=== PATIENT | male | born 1960 | race Caucasian/White ===

== ENCOUNTER → 2017-05-20 | Outpatient (CLI) | payer OTHER ==
[2017-05-20 13:25] LABS: HCT 43.3 % (39.0-53.0); HGB 15.2 gm/dL (13.0-17.5); MCH 30.3 pg (25.0-35.0); MCV 86.6 fL (80.0-100.0); Mean Platelet Volume 6.8; Platelet Count 400 k/uL (150-450); RDW 12.6 % (11.5-15.5); WBC 8.8 k/uL (3.8-10.6)
== END | disposition home or self-care (01) ==
LOC: LABPAT 12:35
PROVIDERS: ATTEND Surgery
DX: Z01.812 Encounter for preprocedural laboratory examination (principal); K21.0 Gastro-esophageal reflux disease with esophagitis; D64.9 Anemia, unspecified; F17.200 Nicotine dependence, unspecified, uncomplicated
CPT/HCPCS: 36415; 85027

== ENCOUNTER → 2017-05-26 | Day surgery (SDC) | payer OTHER ==
[~2017-05-26] MED LIST: GLYCOPYRROLATE 0.2 MG/ML 2 ML VIAL ONE; LIDOCAINE 1% 20 ML VIAL (10MG/ML) FOR IV START INTRADERMA ONE; LIDOCAINE 1% INJ 10MG/ML (20 ML MDV) ONE; PROPOFOL 10 MG/ML 20 ML VIAL IV ONE
[2017-05-26] MEDS: LACTATED RINGERS 1,000 ML IV SCH ×2 (09:39→11:19)
[2017-05-26 09:47] VITALS: RESP 16; TEMP 97.5
--- NOTE | 2017-05-26 11:31 | P.GSHP ---
History of Present Illness H&P Date: 05/26/17 Chief Complaint: GERD This is a 56-year-old male referred from Dr. Brenner. Patient resents today for EGD. He's had issues with GERD. Past Medical History Past Medical History: COPD, GERD/Reflux, Pneumonia Additional Past Medical History / Comment(s): Pt is s/p cervical C5-C7 vertebrae replacement surgery performed at [facility] on 06/06/14. History of Any Multi-Drug Resistant Organisms: None Reported Past Surgical History: Orthopedic Surgery, Tonsillectomy Additional Past Surgical History / Comment(s): c5-c7 vertebrae replacement surg on 06/06/14 at [facility]- wearing cervical hard collar-healing incision to rt side of neck. Rt knee arthrscopy, EGD W/ BX(BX WAS NEG) Past Anesthesia/Blood Transfusion Reactions: No Reported Reaction Past Psychological History: No Psychological Hx Reported Additional Psychological History / Comment(s): Pt lives with his fiancee. He is independent with ADls. He can drive. Smoking Status: Former smoker Past Alcohol Use History: Rare Additional Past Alcohol Use History / Comment(s): Pt started smoking when he was 13 yrs old and quit in 1999. Past Drug Use History: None Reported - Past Family History Father Family Medical History: CVA/TIA Additional Family Medical History / Comment(s): Father is currently hospitalized here at [facility] with mini strokes. Mother Family Medical History: No Reported History Additional Family Medical History / Comment(s): Mother is healthy. Medications and Allergies Home Medications Medication Instructions Recorded Confirmed Type Albuterol Inhaler [Ventolin Hfa 2 puff INHALATION RT-Q6H PRN 06/24/14 05/26/17 History Inhaler] Multivitamin/Iron/Folic Acid 1 each PO DAILY 02/24/15 05/26/17 History [Centrum Complete Multivit Tab] Omeprazole 20 mg PO BID 05/20/17 05/26/17 History Allergies Allergy/AdvReac Type Severity Reaction Status Date / Time No Known Allergies Allergy Verified 05/20/17 08:32 Surgical - Exam Vital Signs Temp Pulse Resp BP Pulse Ox 97.5 F L 75 16 116/71 96 05/26/17 09:43 05/26/17 09:43 05/26/17 09:43 05/26/17 09:43 05/26/17 09:43 - General well developed, no distress - Eyes PERRL - ENT normal pinna - Neck no masses - Respiratory normal expansion - Cardiovascular Rhythm: regular - Abdomen Abdomen: soft, non tender Assessment and Plan Assessment: GERD. We'll perform EGD.
--- NOTE | 2017-05-26 11:36 | P.OP ---
Date of Procedure: 05/26/17 Preoperative Diagnosis: GERD Postoperative Diagnosis: Antral gastritis Hiatal hernia Esophagitis Procedure(s) Performed: EGD Anesthesia: MAC Surgeon: Christopehr Laura Pathology: other (Antrum, esophagus) Condition: stable Disposition: PACU Description of Procedure: The patient's placed on the endoscopy table in the lateral position. He received IV sedation. The gastroscope was placed oropharynx passed in the esophagus and stomach. The scope was then placed through the pylorus. The first and second portion of the duodenum appeared normal. The scope was then brought back the antrum this was mildly inflamed. A biopsies performed. The scope was then retroflexed and there was a moderate size hiatal hernia. The GE junction was at 38 cm. The distal esophagus appeared inflamed and a biopsies performed. The proximal esophagus appeared normal. The scope was withdrawn for patient.
[2017-05-26 11:51] VITALS: BP 114/70
[2017-05-26 11:52] VITALS: PULSE 80
== END ==
LOC: ORWHC2ENDO 09:29
PROVIDERS: ATTEND Surgery
DX: K21.0 Gastro-esophageal reflux disease with esophagitis (principal); K29.50 Unspecified chronic gastritis without bleeding; K44.9 Diaphragmatic hernia without obstruction or gangrene; J44.9 Chronic obstructive pulmonary disease, unspecified; Z87.891 Personal history of nicotine dependence; Z79.899 Other long term (current) drug therapy
CPT/HCPCS: 88305; 43239; J2001; J2704

== ENCOUNTER 2017-05-27 08:52 | Day surgery (SDC) | payer OTHER ==
[~2017-05-27 08:52] MED LIST changes: +DEXAMETHASONE SOD PHOSPHATE 10 MG/ML 1 ML VIAL IV ONE; -GLYCOPYRROLATE 0.2 MG/ML 2 ML VIAL ONE; +HEPARIN SODIUM,PORCINE 5,000 UNIT/ML 1 ML VIAL SQ ONE; -LIDOCAINE 1% 20 ML VIAL (10MG/ML) FOR IV START INTRADERMA ONE; +LIDOCAINE 1% 20 ML VIAL (10MG/ML) FOR IV START INTRADERMA PRN; -LIDOCAINE 1% INJ 10MG/ML (20 ML MDV) ONE; +MIDAZOLAM 2 MG/2 ML VIAL IV PRN; +ONDANSETRON 4 MG/2 ML VIAL IVP ONE; -PROPOFOL 10 MG/ML 20 ML VIAL IV ONE; +SCOPOLAMINE 1.5MG/72HR PATCH TRANSDERM ONE; +ceFAZolin IN SWFI 2 GM/20 ML SYRINGE IVP ONE
[2017-05-27] MEDS ORDERED: LACTATED RINGERS 1,000 ML IV ONE ×2 (09:29→11:52)
--- NOTE | 2017-05-27 10:59 | P.GSHP ---
History of Present Illness H&P Date: 05/27/17 Chief Complaint: GERD This a 56-year-old male referred from Dr. Brenner.The patient has had long- standing problems with reflux esophagitis. The patient underwent recent EGD is found have evidence of esophagitis. Patient has been well informed on the procedure of laparoscopic Jim fundoplication. The patient is aware the risk of the conversion to the open procedure, risk of injury to the stomach, liver and spleen. The patient is also a risk of recurrent GERD and dysphagia symptoms. The patient understands there is a postoperative diet of full liquids for 2 weeks after surgery. Past Medical History Past Medical History: COPD, GERD/Reflux, Pneumonia Additional Past Medical History / Comment(s): Pt is s/p cervical C5-C7 vertebrae replacement surgery performed at [facility] on 06/06/14. History of Any Multi-Drug Resistant Organisms: None Reported Past Surgical History: Orthopedic Surgery, Tonsillectomy Additional Past Surgical History / Comment(s): c5-c7 vertebrae replacement surg on 06/06/14 at [facility]- wearing cervical hard collar-healing incision to rt side of neck. Rt knee arthrscopy, EGD W/ BX(BX WAS NEG) Past Anesthesia/Blood Transfusion Reactions: No Reported Reaction Past Psychological History: No Psychological Hx Reported Additional Psychological History / Comment(s): Pt lives with his fiancee. He is independent with ADls. He can drive. Smoking Status: Former smoker Past Alcohol Use History: Rare Additional Past Alcohol Use History / Comment(s): Pt started smoking when he was 13 yrs old and quit in 1999. Past Drug Use History: None Reported - Past Family History Father Family Medical History: CVA/TIA Additional Family Medical History / Comment(s): Father is currently hospitalized here at [facility] with mini strokes. Mother Family Medical History: No Reported History Additional Family Medical History / Comment(s): Mother is healthy. Medications and Allergies Home Medications Medication Instructions Recorded Confirmed Type Albuterol Inhaler [Ventolin Hfa 2 puff INHALATION RT-Q6H PRN 06/24/14 05/26/17 History Inhaler] Multivitamin/Iron/Folic Acid 1 each PO DAILY 02/24/15 05/26/17 History [Centrum Complete Multivit Tab] Omeprazole 20 mg PO BID 05/20/17 05/26/17 History Allergies Allergy/AdvReac Type Severity Reaction Status Date / Time No Known Allergies Allergy Verified 05/20/17 08:32 Surgical - Exam Vital Signs Temp Pulse Resp BP Pulse Ox 97.8 F 66 18 133/71 97 05/27/17 09:28 05/27/17 09:28 05/27/17 09:28 05/27/17 09:28 05/27/17 09:28 - General well developed - Eyes PERRL - ENT normal pinna - Neck no masses - Respiratory normal expansion - Cardiovascular Rhythm: regular - Abdomen Abdomen: soft, non tender Assessment and Plan Assessment: GERD. We'll perform laparoscopic Jim fundal plication.
[2017-05-27] MEDS ORDERED: NEOSTIGMINE 1 MG/ML 10 ML VIAL ONE (11:15)
[2017-05-27] MEDS ORDERED: MIDAZOLAM 2 MG/2 ML VIAL ONE (11:15)
[2017-05-27] MEDS ORDERED: LIDOCAINE 1% INJ 10MG/ML (20 ML MDV) ONE (11:15)
[2017-05-27] MEDS ORDERED: GLYCOPYRROLATE 0.2 MG/ML 2 ML VIAL ONE (11:15)
[2017-05-27] MEDS ORDERED: ROCURONIUM BROMIDE 10 MG/ML 10 ML VIAL IV ONE (11:15)
[2017-05-27] MEDS ORDERED: fentaNYL (PF) 50 MCG/ML 2 ML AMP ONE (11:15)
[2017-05-27] MEDS ORDERED: SUCCINYLCHOLINE CHLORIDE 100 MG/5 ML SYR IV ONE (11:15)
[2017-05-27] MEDS ORDERED: PROPOFOL 10 MG/ML 20 ML VIAL IV ONE (11:15)
[2017-05-27] MEDS ORDERED: BUPIVACAINE (PF) 0.5% 30 ML VIAL SQ ONE (11:51)
[2017-05-27 12:54] VITALS: RESP 16
[2017-05-27] MEDS: MORPHINE SULFATE 2 MG/ML SYRINGE IV PRN ×2 (13:00→13:05)
[2017-05-27] MEDS ORDERED: ONDANSETRON 4 MG/2 ML VIAL IVP PRN (13:07)
--- NOTE | 2017-05-27 13:07 | P.OP ---
Date of Procedure: 05/27/17 Preoperative Diagnosis: GERD Postoperative Diagnosis: GERD Procedure(s) Performed: Laparoscopic Jim fundoplication with mesh repair of hiatal hernia Anesthesia: DARIAN Surgeon: Christopher Laura Estimated Blood Loss (ml): 5 Pathology: none sent Condition: stable Description of Procedure: The patient was placed on the operating table in the supine position. She received general anesthesia. She was then placed in dorsal lithotomy position. Her abdomen was prepped and draped in the usual sterile fashion. The skin incision sites were anesthetized with 1% local Xylocaine. The skin was incised in the left periumbilical area with an 11 scalpel. Using a 5 mm blade was trocar under direct visitation the peritoneal cavity was entered. And then insufflated. After adequate insufflation the laparoscope was placed back into the peritoneal cavity. Next a 5 mm trocar was placed in the right epigastric and then the right lateral position. Another 5 mm trochars placed in the left lateral position. Another 5 mm trocar placed in the left epigastric position. And the original left periumbilical trocar was exchanged for a 10 mm trocar. The left lateral lobe liver was retracted. The patient had a large hiatal hernia. Using the Harmonic scissors the crural defect was dissected in the Harmonic scissors were used to dissect the hiatal hernia sac. The fundus of the stomach was completely mobilized by using the Harmonic scissors to divide short gastric vessels. The stomach was reduced into the peritoneal cavity. The crura was dissected with the Harmonic scissors. And then the crural repair was performed using 2-0 Ethibond suture. The Debord bio A mesh was then placed over top of the repair and secured with 2-0 Ethibond suture. Next a 58-Syrian bougie dilator was placed the patient's oral pharynx and into the esophagus into the stomach by the FAGOTING MACHINE OPERATOR. The fundoplication was then performed using 2-0 Ethibond suture. A 360 fundoplication was performed. At this point the dilator was withdrawn. The stomach and esophagus were inspected there is known to any injury to the stomach or esophagus. The abdomen was irrigated there is no bleeding seen. The trochars are withdrawn. Skin was closed interrupted 3-0 Monocryl suture. Dermabond was applied. Patient tolerated procedure well and was sent to recovery in stable condition.
[2017-05-27] MEDS: MEPERIDINE 50 MG/ML SYRINGE IVP ONE ×4 (13:15→13:27)
[2017-05-27] MEDS ORDERED: hydrALAZINE HCL 20 MG/ML 1 ML VIAL IVP ONE (13:22)
[2017-05-27] MEDS ORDERED: MEPERIDINE 50 MG/ML SYRINGE IVP PRN (13:39)
[2017-05-27] MEDS: LACTATED RINGERS 1,000 ML IV SCH (14:11)
--- NOTE | 2017-05-27 14:35 | FL ---
EXAMINATION TYPE: FL esophagus cervic/pharynx DATE OF EXAM: 05/27/2017 HISTORY: Status post Jim fundoplication COMPARISON: NONE TECHNIQUE: A single contrast esophagram is performed utilizing barium. Fluoro time 1 min 16 seconds . 8 images saved. FINDINGS: The esophagus shows blunting motility and delayed into the stomach, moderate in degree with intraesop hageal reflux. No evidence of hiatal hernia or stricture noted. No evidence of contrast extravasatio n to suggest leak. No significant gastroesophageal reflux was seen during real time performance of th is study. IMPRESSION: No evidence of postprocedural leak. Moderate delay in emptying into the stomach at the g astroesophageal junction, likely representing postoperative edema. There is moderate resultant intrae sophageal reflux.
[2017-05-27 14:39] VITALS: BMI 24.7
[2017-05-27] MEDS: HYDROcodone/APAP 7.5-325MG 1 EACH TAB PO PRN ×3 (15:46→23:49)
[2017-05-27] MEDS: D5-0.45% NACL WITH KCL 20MEQ/L 1,000 ML IV SCH ×2 (17:32→22:42)
[2017-05-27] MEDS ORDERED: ALBUTEROL NEBULIZED 2.5 MG/3 ML INHALATION PRN (22:40)
[2017-05-28 02:21] VITALS: BP 124/56; TEMP 97.7
[2017-05-28] MEDS: HYDROcodone/APAP 7.5-325MG 1 EACH TAB PO PRN ×2 (04:52→08:46)
[2017-05-28] MEDS: D5-0.45% NACL WITH KCL 20MEQ/L 1,000 ML IV SCH (05:49)
[2017-05-28] MEDS: LACTATED RINGERS 1,000 ML IV SCH (05:50)
--- NOTE | 2017-05-28 08:41 | CONS ---
CONSULTATION REASON FOR CONSULTATION: Advice regarding COPD and other medical issues requested by Dr. Laura. HISTORY OF PRESENT ILLNESS: This 56-year-old gentleman with a past medical history of COPD, GERD, history of C5-7 vertebral replacement surgery, being followed by Dr. Brenner in the outpatient setting underwent laparoscopic Jim fundoplication with mesh repair of hiatal hernia by Dr. Laura. The patient has tolerated surgery well and there is no history of chest pain. No palpitations, headache, loss of consciousness, seizures, nausea or diarrhea at this time. PAST MEDICAL: COPD, GERD, history of pneumonia. MEDICATIONS: Omeprazole 20 mg b.i.d., albuterol 2 puffs q.6 p.r.n., multivitamin 1 daily. ALLERGIES: None. FAMILY HISTORY: History of CVA, TIA in the family. SOCIAL HISTORY: Previous history of smoking. No history of current smoking or alcohol intake. REVIEW OF SYSTEMS: ENT: No diminished hearing or vision. CARDIOVASCULAR: No angina. RESPIRATORY: No cough or hemoptysis. GI: As mentioned earlier. : No dysuria NERVOUS SYSTEM: No numbness, weakness. ALLERGY/IMMUNOLOGY: No asthma or hay fever. MUSCULOSKELETAL: As mentioned earlier. HEMATOLOGY/ONCOLOGY: No history of anemia. ENDOCRINE: No history of diabetes or hypothyroidism. CONSTITUTIONAL: As mentioned earlier. DERMATOLOGY: Negative. RHEUMATOLOGY: Negative. PSYCHIATRY: As mentioned earlier. PHYSICAL EXAMINATION: Alert and oriented x3. Pulse is 112, blood pressure 130/70, respiration 18, temperature 97.2, pulse ox 98% on room air. HEENT: Conjunctivae normal. NECK: No jugular venous distention. CARDIOVASCULAR: S1, S2 RESPIRATORY: Breath sounds diminished in the bases. No rhonchi, no crackles. ABDOMEN: Soft, status post surgery. LEGS: No edema, no swelling. NERVOUS SYSTEM: Higher functions as mentioned earlier, moves all 4 limbs, no focal deficits. LYMPHATIC: No lymphadenopathy in the neck, axillae, groin.. SKIN: No ulcer, rash or bleeding. LABS: Not available. ASSESSMENT: 1. Status post laparoscopic Jim fundoplication with mesh repair of hiatal hernia. 2. History of gastroesophageal reflux disease. 3. History of chronic obstructive pulmonary disease. 4. History of pneumonia. 5. History of C5-7 vertebral replacement. 6. History of degenerative joint disease. RECOMMENDATIONS AND DISCUSSION: This 56-year-old gentleman who presented with multiple complex medical issues, at this time I recommend to continue current management and symptomatic treatment. Otherwise resume the home medications. Incentive spirometry. DVT prophylaxis. We will follow the patient closely with you and the patient may be asked to follow up with primary physician closely after discharge. Thank you, Dr. Laura, for letting us participate in the care of this patient. MMLAINEYL / TENISHAN: [id number] /
[2017-05-28 08:53] VITALS: PULSE 100
[2017-05-28] MEDS ORDERED: ENOXAPARIN 40 MG/0.4 ML SYRINGE SQ SCH (09:00)
--- NOTE | 2017-05-28 10:57 | P.DS ---
Providers Date of admission: 05/27/2017 Expected date of discharge: 05/28/17 Attending physician: Christopher Laura Consults: 05/27/17 13:07 Consult Physician Routine Consulting Provider: Mariza Davies Consult Reason/Comments: Medical management Do you want consulting provider notified?: Yes Primary care physician: Gilbert Kessler [facility] Course: This a 56-year-old male who underwent laparoscopic Jim location on 317. Patient did well postoperative. Please see hospital chart for details. He'll be discharged home today. Procedures: Laparoscopic Jim fundal plication Patient Condition at Discharge: Good Plan - Discharge Summary Discharge Rx Participant: Yes New Discharge Prescriptions: New Docusate [Colace] 100 mg PO BID #20 capsule HYDROcodone/APAP 7.5-325MG [Parlin 7.5] 1 each PO Q4H PRN #30 tab PRN Reason: Pain No Action Albuterol Inhaler [Ventolin Hfa Inhaler] 2 puff INHALATION RT-Q6H PRN PRN Reason: Shortness Of Breath Or Wheezing Multivitamin/Iron/Folic Acid [Centrum Complete Multivit Tab] 1 each PO DAILY Omeprazole 20 mg PO BID Discharge Medication List Albuterol Inhaler [Ventolin Hfa Inhaler] 2 puff INHALATION RT-Q6H PRN 06/24/14 [ History] Multivitamin/Iron/Folic Acid [Centrum Complete Multivit Tab] 1 each PO DAILY [History] Omeprazole 20 mg PO BID 05/20/17 [History] Docusate [Colace] 100 mg PO BID #20 capsule 05/28/17 [Rx] HYDROcodone/APAP 7.5-325MG [Parlin 7.5] 1 each PO Q4H PRN #30 tab 05/28/17 [Rx] Follow up Appointment(s)/Referral(s): Christopher Laura MD [STAFF PHYSICIAN] - 2 Weeks Discharge Disposition: HOME SELF-CARE
--- NOTE | 2017-05-28 12:11 | PN ---
PROGRESS NOTE DATE OF SERVICE: 05/28/2017 This 56-year-old gentleman who was admitted with laparoscopic Jim fundoplication with mesh repair is improving significantly. No chest pain or palpitations. No fever. PHYSICAL EXAMINATION: On exam, alert and oriented x3. Pulse 102, blood pressure 124/56, respirations 16, temperature 97.7, pulse ox 93% on room air. HEENT: Conjunctivae normal. NECK: No jugular venous distention. CARDIOVASCULAR: S1 and S2 muffled. RESPIRATORY: Diminished breath sounds at the bases. No rhonchi, no crackles. Abdomen is soft, status post surgery. LEGS: No edema, no swelling. NERVOUS SYSTEM: No focal deficits. . LABS: Labs are not available. ASSESSMENT: 1. Status post laparoscopic Jim fundoplication with mesh repair of hiatal hernia. 2. History of gastroesophageal reflux disease. 3. History of chronic obstructive pulmonary disease. 4. History of pneumonia. 5. C5-7 vertebral replacement history. 6. History of degenerative joint disease. RECOMMENDATIONS AND DISCUSSION: Recommend to continue current medications, continue symptomatic treatment, incentive spirometry, resume the home medications and rest of the medications per surgical recommendations. MMODL / IJN: [id number] /
== END 2017-05-28 11:50 | disposition home or self-care (01) ==
LOC: OR 08:52 → EDSTATUS 10:45 → 3SUR 12:43 → OR 05-28 11:50
PROVIDERS: ATTEND Surgery
DX: K21.0 Gastro-esophageal reflux disease with esophagitis (principal); K44.9 Diaphragmatic hernia without obstruction or gangrene; J44.9 Chronic obstructive pulmonary disease, unspecified; M19.90 Unspecified osteoarthritis, unspecified site; Z79.899 Other long term (current) drug therapy; Z87.891 Personal history of nicotine dependence; Z98.1 Arthrodesis status
CPT/HCPCS: 93005; 86900; 86901; 86850; 74210; 43280; C1781; J2250; J0360; J1644; J1100; J2710; Q9967; J2175; J2405; J2001; J1650; J3010; J2270; J0330; J2704; J0690

== ENCOUNTER 2017-07-02 22:21 | Inpatient (IN) | payer OTHER ==
[2017-07-02] MEDS ORDERED: SODIUM CHLORIDE 0.9% 1,000 ML IV STA (22:37)
[2017-07-02] MEDS ORDERED: RX INFO: IV CONTRAST WAS GIVEN 1 EACH MISC MISCELLANE PRN (22:37)
[2017-07-02] MEDS ORDERED: ONDANSETRON 4 MG/2 ML VIAL IVP STA (22:37)
[2017-07-02] MEDS ORDERED: MORPHINE SULFATE 4MG/4ML SYRG IV STA (22:37)
--- NOTE | 2017-07-02 22:43 | ED ---
Abdominal Pain HPI - General Chief Complaint: Abdominal Pain Stated Complaint: Constipation Time Seen by Provider: 07/02/17 22:29 Source: patient Mode of arrival: ambulatory Limitations: no limitations - History of Present Illness Initial Comments: Patient is a 56-year-old male presenting for abdominal pain. He was diagnosed last week with an SBO based on x-ray by his primary care physician. He states that the abdominal pain really started several weeks ago after a hiatal hernia surgery. The patient has been increasingly getting worse since then and is located in the left side of his abdomen and feels that her cramping/sharp sensation. There is no radiation of pain is been constant. The dry heaves become worse after eating but there are no modifying factors for the pain. He admits to some dysuria but no changes in frequency or testicular pain. He denies any fevers or chills states his last bowel movement was this morning. - Related Data Home Medications Medication Instructions Recorded Confirmed Albuterol Inhaler [Ventolin Hfa 2 puff INHALATION RT-Q6H PRN 06/24/14 05/26/17 Inhaler] Multivitamin/Iron/Folic Acid 1 each PO DAILY 02/24/15 05/26/17 [Centrum Complete Multivit Tab] Omeprazole 20 mg PO BID 05/20/17 05/26/17 Previous Rx's Medication Instructions Recorded Docusate [Colace] 100 mg PO BID #20 capsule 05/28/17 HYDROcodone/APAP 7.5-325MG [[place] 1 each PO Q4H PRN #30 tab 05/28/17 7.5] Allergies Allergy/AdvReac Type Severity Reaction Status Date / Time No Known Allergies Allergy Verified 05/20/17 08:32 Review of Systems ROS Statement: Those systems with pertinent positive or pertinent negative responses have been documented in the HPI. Constitutional: Negative for chills, fatigue and fever. HENT: Negative for congestion. Respiratory: Negative for chest tightness, shortness of breath and wheezing. Cardiovascular: Negative for chest pain and palpitations. Gastrointestinal: Positive for abdominal pain. Positive for nausea and negative for vomiting, abdominal distention, diarrhea, . Genitourinary: Positive for dysuria. Negative for testicular pain Musculoskeletal: Negative for back pain, neck pain and neck stiffness. Skin: Negative for color change. Neurological: Negative for dizziness, speech difficulty, weakness and light- headedness. Psychiatric/Behavioral: Negative for agitation and confusion. The patient is not nervous/anxious. ROS Other: All systems not noted in ROS Statement are negative. Past Medical History Past Medical History: COPD, GERD/Reflux, Pneumonia Additional Past Medical History / Comment(s): . History of Any Multi-Drug Resistant Organisms: None Reported Past Surgical History: Hernia Repair, Orthopedic Surgery, Tonsillectomy Additional Past Surgical History / Comment(s): c5-c7 vertebrae replacement surg on 06/06/14. Rt knee arthrscopy, EGD W/ BX(BX WAS NEG) Past Anesthesia/Blood Transfusion Reactions: No Reported Reaction Past Psychological History: No Psychological Hx Reported Smoking Status: Former smoker Past Alcohol Use History: Rare Past Drug Use History: None Reported - Past Family History Father Family Medical History: CVA/TIA Additional Family Medical History / Comment(s): Father is currently hospitalized here at [facility] with mini strokes. Mother Family Medical History: No Reported History Additional Family Medical History / Comment(s): Mother is healthy. General Exam - General Exam Comments Initial Comments: Physical Exam Constitutional: Pt is oriented to person, place, and time. Pt appears well- developed and well-nourished. No distress. HENT: Head: Normocephalic and atraumatic. Eyes: EOM are normal. Neck: Normal range of motion. Neck supple. Cardiovascular: Normal rate, regular rhythm, S1 normal, S2 normal and normal heart sounds. Exam reveals no gallop and no friction rub. No murmur heard. Pulmonary/Chest: Effort normal and breath sounds normal. No tachypnea and no bradypnea. No respiratory distress. No wheezes or rales noted. Abdominal: Soft. Bowel sounds are normal. Pt exhibits no shifting dullness, no distension, no pulsatile liver, no fluid wave, no abdominal bruit and no ascites. There is tenderness in the left upper and left lower quadrant.. There is no rigidity, no rebound, no guarding, no tenderness at McBurney's point and negative Parra's sign. Musculoskeletal: Normal range of motion. Neurological: Pt is alert and oriented to person, place, and time. No cranial nerve deficit. Skin: Skin is warm and dry. No rash noted. Pt is not diaphoretic. No erythema. No pallor. Psychiatric: Pt has a normal mood and affect. Pt behavior is normal. Thought content normal. Limitations: no limitations Course Vital Signs 07/02/17 07/02/17 22:23 23:36 Temperature 97.9 F 97.8 F Pulse Rate 102 H 85 Respiratory 16 18 Rate Blood Pressure 141/85 138/82 O2 Sat by Pulse 97 98 Oximetry - Reevaluation(s) Reevaluation #1: 07/03/17 00:15 Patient continues to have pain even though receiving [address] of the abdomen showed mildly dilated proximal small bowel consistent with ileus or partial mechanical obstruction without transition point seen. General surgery is attempting to be reached. Medical Decision Making - Medical Decision Making Case discussed with Dr. Craft and it was advised the patient should be admitted to medicine. Patient remains hemodynamically stable and laboratory studies revealed no significant leukocytosis nor lactic acidosis. Patient will be admitted to the medical service for small bowel structure versus ileus. NG tube was not placed as the patient is not been actively vomiting. - Lab Data Result diagrams: 07/02/17 22:40 07/02/17 22:40 Lab Results 07/02/17 07/02/17 07/02/17 Range/Units 22:40 22:40 22:40 WBC 10.9 H (3.8-10.6) k/uL RBC 5.09 (4.30-5.90) m/uL Hgb 15.2 (13.0-17.5) gm/dL Hct 43.0 (39.0-53.0) % MCV 84.3 (80.0-100.0) fL MCH 29.9 (25.0-35.0) pg MCHC 35.4 (31.0-37.0) g/dL RDW 12.2 (11.5-15.5) % Plt Count 413 (150-450) k/uL Neutrophils % 72 % Lymphocytes % 13 % Monocytes % 9 % Eosinophils % 4 % Basophils % 0 % Neutrophils # 7.8 H (1.3-7.7) k/uL Lymphocytes # 1.4 (1.0-4.8) k/uL Monocytes # 1.0 (0-1.0) k/uL Eosinophils # 0.4 (0-0.7) k/uL Basophils # 0.0 (0-0.2) k/uL PT (9.0-12.0) sec INR (<1.2) APTT (22.0-30.0) sec Sodium 143 (137-145) mmol/L Potassium 4.3 (3.5-5.1) mmol/L Chloride 106 (98-107) mmol/L Carbon Dioxide 22 (22-30) mmol/L Anion Gap 15 mmol/L BUN 19 (9-20) mg/dL Creatinine 0.90 (0.66-1.25) mg/dL Est GFR (CKD-EPI)AfAm >90 (>60 ml/min/1.73 sqM) Est GFR (CKD-EPI)NonAf >90 (>60 ml/min/1.73 sqM) Glucose 87 (74-99) mg/dL Plasma Lactic Acid Juma 0.8 (0.7-2.0) mmol/L Calcium 9.8 (8.4-10.2) mg/dL Magnesium 2.0 (1.6-2.3) mg/dL Total Bilirubin 0.5 (0.2-1.3) mg/dL AST 30 (17-59) U/L ALT 49 (21-72) U/L Alkaline Phosphatase 68 (38-126) U/L Total Protein 6.8 (6.3-8.2) g/dL Albumin 4.4 (3.5-5.0) g/dL Lipase 114 (23-300) U/L Urine Color Urine Appearance (Clear) Urine pH (5.0-8.0) Ur Specific [place] (1.001-1.035) Urine Protein (Negative) Urine Glucose (UA) (Negative) Urine Ketones (Negative) Urine Blood (Negative) Urine Nitrite (Negative) Urine Bilirubin (Negative) Urine Urobilinogen (<2.0) mg/dL Ur Leukocyte Esterase (Negative) 07/02/17 07/02/17 Range/Units 22:40 23:38 WBC (3.8-10.6) k/uL RBC (4.30-5.90) m/uL Hgb (13.0-17.5) gm/dL Hct (39.0-53.0) % MCV (80.0-100.0) fL MCH (25.0-35.0) pg MCHC (31.0-37.0) g/dL RDW (11.5-15.5) % Plt Count (150-450) k/uL Neutrophils % % Lymphocytes % % Monocytes % % Eosinophils % % Basophils % % Neutrophils # (1.3-7.7) k/uL Lymphocytes # (1.0-4.8) k/uL Monocytes # (0-1.0) k/uL Eosinophils # (0-0.7) k/uL Basophils # (0-0.2) k/uL PT 10.0 (9.0-12.0) sec INR 1.0 (<1.2) APTT 23.7 (22.0-30.0) sec Sodium (137-145) mmol/L Potassium (3.5-5.1) mmol/L Chloride (98-107) mmol/L Carbon Dioxide (22-30) mmol/L Anion Gap mmol/L BUN (9-20) mg/dL Creatinine (0.66-1.25) mg/dL Est GFR (CKD-EPI)AfAm (>60 ml/min/1.73 sqM) Est GFR (CKD-EPI)NonAf (>60 ml/min/1.73 sqM) Glucose (74-99) mg/dL Plasma Lactic Acid Juma (0.7-2.0) mmol/L Calcium (8.4-10.2) mg/dL Magnesium (1.6-2.3) mg/dL Total Bilirubin (0.2-1.3) mg/dL AST (17-59) U/L ALT (21-72) U/L Alkaline Phosphatase (38-126) U/L Total Protein (6.3-8.2) g/dL Albumin (3.5-5.0) g/dL Lipase (23-300) U/L Urine Color Yellow Urine Appearance Clear (Clear) Urine pH 5.5 (5.0-8.0) Ur Specific [place] 1.037 H (1.001-1.035) Urine Protein Trace H (Negative) Urine Glucose (UA) Negative (Negative) Urine Ketones 1+ H (Negative) Urine Blood Negative (Negative) Urine Nitrite Negative (Negative) Urine Bilirubin Negative (Negative) Urine Urobilinogen 2.0 (<2.0) mg/dL Ur Leukocyte Esterase Negative (Negative) Disposition Clinical Impression: Small bowel obstruction Disposition: ADMITTED IP TO THIS HOSP Condition: Fair Is patient prescribed a controlled substance at d/c from ED?: No Referrals: Gilbert Brenner MD [Primary Care Provider] - 1-2 days Decision Date: 07/03/17 Decision Time: 00:44
[2017-07-02] MEDS ORDERED: MORPHINE SULFATE 4MG/4ML SYRG ONE (22:44)
[2017-07-02] MEDS: SODIUM CHLORIDE 0.9% 1,000 ML IV SCH (22:51)
[2017-07-02 23:04] LABS: Basophils % (A) 0 %; Eosinophils # (A) 0.4 k/uL (0-0.7); Eosinophils % (A) 4 %; HGB 15.2 gm/dL (13.0-17.5); Lymphocytes # (A) 1.4 k/uL (1.0-4.8); Lymphocytes % (A) 13 %; MCH 29.9 pg (25.0-35.0); MCHC 35.4 g/dL (31.0-37.0); MCV 84.3 fL (80.0-100.0); Mean Platelet Volume 6.5; Monocytes % (A) 9 %; Neutrophils # (A) 7.8 k/uL (1.3-7.7); Neutrophils % (A) 72 %; Platelet Count 413 k/uL (150-450); RBC 5.09 m/uL (4.30-5.90); RDW 12.2 % (11.5-15.5); WBC 10.9 k/uL (3.8-10.6)
[2017-07-02 23:14] LABS: Partial Thromboplastin Time 23.7 sec (22.0-30.0)
[2017-07-02 23:18] LABS: ALT 49 U/L (21-72); AST 30 U/L (17-59); Albumin 4.4 g/dL (3.5-5.0); Alkaline Phosphatase 68 U/L (38-126); Anion Gap 15 mmol/L; Blood Urea Nitrogen 19 mg/dL (9-20); Calcium 9.8 mg/dL (8.4-10.2); Carbon Dioxide 22 mmol/L (22-30); Chloride 106 mmol/L (98-107); Glucose 87 mg/dL (74-99); Lipase 114 U/L (23-300); Potassium 4.3 mmol/L (3.5-5.1); Sodium 143 mmol/L (137-145); Total Bilirubin 0.5 mg/dL (0.2-1.3); Total Protein 6.8 g/dL (6.3-8.2)
--- NOTE | 2017-07-02 23:42 | CT ---
EXAMINATION TYPE: CT abdomen pelvis w con DATE OF EXAM: 07/02/2017 COMPARISON: 02/19/2015 HISTORY: abd pain and constiaption following hiatal hernia repair [address] DLP: 597.00 mGycm Automated exposure control for dose reduction was used. TECHNIQUE: Helical acquisition of images was performed from the lung bases through the pelvis. CONTRAST: Performed without Oral Contrast and with IV Contrast, patient injected with 100 mL of Isovue 300. FINDINGS: Lung bases are clear of consolidation. There is minimal subsegmental atelectasis at the posterior juanito g bases. There is no pleural effusion. There is no pericardial effusion. There are clips at the gastr oesophageal junction. Liver spleen pancreas gallbladder appear normal. Bile ducts are not dilated. There is no adrenal mass . Kidneys show satisfactory contrast opacification. There is no hydronephrosis. There is no retroperi toneal adenopathy. There are some distended fluid-filled loops of small bowel in the mid abdomen. The se measure up to 3.3 cm. The terminal ileum is not dilated. Appendix appears normal. I see no intestinal wall thickening. The bladder distends smoothly. There is prostatic calcification. There is no sign of a pelvic mass. There is no ascites. There is no sign of free air. Abdominal aort a is atheromatous. Lumbar spine appears intact.. IMPRESSION: THERE IS MILDLY DILATED PROXIMAL SMALL BOWEL CONSISTENT WITH ILEUS OR PARTIAL MECHANICAL OBSTRUCTION. I DO NOT SEE A TRANSITION POINT. NORMAL APPENDIX. THERE IS CLEARING OF THE RIGHT-SIDED RENAL OBSTRUCTION COMPARED TO OLD EXAM. ENLARGED PROSTATE WITH C ALCIFICATION IS UNCHANGED. SMALL BOWEL ABNORMALITY IS NEW COMPARED TO OLD EXAM.
[2017-07-02 23:49] LABS: Appearance,Urine Clear (Clear); Bilirubin,Urine Negative (Negative); Blood,Urine Negative (Negative); Color,Urine Yellow; Glucose,Urine (UA) Negative (Negative); Ketones,Urine 1+ (Negative); Leukocyte Esterase,Urine Negative (Negative); Nitrite,Urine Negative (Negative); PH, Urine 5.5 (5.0-8.0); Protein,Urine Trace (Negative); Specific Gravity,Urine 1.037 (1.001-1.035)
[2017-07-03] MEDS ORDERED: NALOXONE 0.4 MG/ML 1 ML VIAL IV PRN ×2 (00:44→12:52)
[2017-07-03 01:25] VITALS: BMI 24.3
[2017-07-03] MEDS: MORPHINE SULFATE 4 MG/0.8 ML SYRINGE (INJ) IV PRN ×6 (02:32→23:38)
[2017-07-03] MEDS ORDERED: MORPHINE SULF 5MG/10ML VL IV ONE (05:45)
--- NOTE | 2017-07-03 11:31 | P.GSCN ---
History of Present Illness Consult date: 07/03/17 History of present illness: Patient is a 56-year-old white male who presents with a complaint of left upper quadrant abdominal discomfort. He is status post a hiatal hernia repair approximately 7 weeks ago. Prior to the hiatal hernia repair he said he had severe reflux which has resolved. However he now has some nausea and dry heaves when he tries to eat. He therefore presented to the emergency department. Computed tomography scan was performed which revealed some dilated loops of small bowel in the midabdomen. The patient at this time denies any nausea or vomiting, he states that he has some mild left upper quadrant abdominal discomfort. He did have a bowel movement yesterday. He has no history of any fever or chills. Patients WBC 10.9. Past surgical history: 1. Hiatal hernia repair 2. C-spine neck surgery Past medical history: COPD Social history: Patient does not smoke he stopped approximately 15 years ago and used to smoke 1 pack per day since he was 13 Alcohol use: Negative Drug use: Negative Review of systems: HEENT: Negative Lungs: COPD Heart: Negative GI: As above : Questionable kidney stones Musculoskeletal: Arthritis Integument: Negative ALLERGIES: Seasonal ALLERGIES Endocrine: followed for thyroid nodule Psychiatric: Negative Review of Systems - Constitutional Reports as per HPI - EENT Ears, nose, mouth and throat: Reports as per HPI - Cardiovascular Reports as per HPI - Respiratory Reports as per HPI - Gastrointestinal Reports as per HPI - Musculoskeletal Reports as per HPI - Integumentary Reports as per HPI - Psychiatric Reports as per HPI - Endocrine Reports as per HPI - Allergic/Immunologic Reports seasonal allergies Past Medical History Past Medical History: COPD, GERD/Reflux, Pneumonia Additional Past Medical History / Comment(s): . History of Any Multi-Drug Resistant Organisms: None Reported Past Surgical History: Hernia Repair, Orthopedic Surgery, Tonsillectomy Additional Past Surgical History / Comment(s): c5-c7 vertebrae replacement surg on 06/06/14. Rt knee arthrscopy, EGD W/ BX(BX WAS NEG) Past Anesthesia/Blood Transfusion Reactions: No Reported Reaction Past Psychological History: No Psychological Hx Reported Additional Psychological History / Comment(s): Pt lives with his fiancee. He is independent with ADls. He can drive. Smoking Status: Former smoker Past Alcohol Use History: Rare Additional Past Alcohol Use History / Comment(s): Pt started smoking when he was 13 yrs old and quit in 1999. Past Drug Use History: None Reported - Past Family History Father Family Medical History: CVA/TIA Additional Family Medical History / Comment(s): Father is currently hospitalized here at [facility] with mini strokes. Mother Family Medical History: No Reported History Additional Family Medical History / Comment(s): Mother is healthy. Medications and Allergies Home Medications Medication Instructions Recorded Confirmed Type Albuterol Inhaler [Ventolin Hfa 2 puff INHALATION RT-Q6H PRN 06/24/14 05/26/17 History Inhaler] Multivitamin/Iron/Folic Acid 1 each PO DAILY 02/24/15 05/26/17 History [Centrum Complete Multivit Tab] Omeprazole 20 mg PO BID 05/20/17 05/26/17 History Docusate [Colace] 100 mg PO BID #20 capsule 05/28/17 Rx HYDROcodone/APAP 7.5-325MG [[place] 1 each PO Q4H PRN #30 tab 05/28/17 Rx 7.5] Allergies Allergy/AdvReac Type Severity Reaction Status Date / Time No Known Allergies Allergy Verified 05/20/17 08:32 Surgical - Exam Vital Signs Temp Pulse Resp BP Pulse Ox 97.9 F 102 H 16 141/85 97 07/02/17 22:23 07/02/17 22:23 07/02/17 22:23 07/02/17 22:23 07/02/17 22:23 - General well developed, well nourished, no distress - Eyes normal ocular movement - ENT normal pinna, normal nares, no hearing loss - Neck no masses, trachea midline, no lymphadectomy - Respiratory normal expansion, normal respiratory effort, clear to auscultation - Cardiovascular Rhythm: regular Heart Sounds: normal: S1, S2 - Abdomen Incision well-healed Mild left upper quadrant tenderness no guarding or rebound Abdomen: soft, bowel sounds - Integumentary no rash - Psychiatric oriented to time, oriented to person, oriented to place, speech is normal Results - Labs 07/02/17 22:40 07/02/17 22:40 Abnormal Lab Results - Last 24 Hours (Table) 07/02/17 07/02/17 Range/Units 22:40 23:38 WBC 10.9 H (3.8-10.6) k/uL Neutrophils # 7.8 H (1.3-7.7) k/uL Ur Specific [place] 1.037 H (1.001-1.035) Urine Protein Trace H (Negative) Urine Ketones 1+ H (Negative) Diabetes panel 07/02/17 Range/Units 22:40 Sodium 143 (137-145) mmol/L Potassium 4.3 (3.5-5.1) mmol/L Chloride 106 (98-107) mmol/L Carbon Dioxide 22 (22-30) mmol/L BUN 19 (9-20) mg/dL Creatinine 0.90 (0.66-1.25) mg/dL Glucose 87 (74-99) mg/dL Calcium 9.8 (8.4-10.2) mg/dL AST 30 (17-59) U/L ALT 49 (21-72) U/L Alkaline Phosphatase 68 (38-126) U/L Total Protein 6.8 (6.3-8.2) g/dL Albumin 4.4 (3.5-5.0) g/dL Calcium panel 07/02/17 Range/Units 22:40 Calcium 9.8 (8.4-10.2) mg/dL Albumin 4.4 (3.5-5.0) g/dL Pituitary panel 07/02/17 Range/Units 22:40 Sodium 143 (137-145) mmol/L Potassium 4.3 (3.5-5.1) mmol/L Chloride 106 (98-107) mmol/L Carbon Dioxide 22 (22-30) mmol/L BUN 19 (9-20) mg/dL Creatinine 0.90 (0.66-1.25) mg/dL Glucose 87 (74-99) mg/dL Calcium 9.8 (8.4-10.2) mg/dL Adrenal panel 07/02/17 Range/Units 22:40 Sodium 143 (137-145) mmol/L Potassium 4.3 (3.5-5.1) mmol/L Chloride 106 (98-107) mmol/L Carbon Dioxide 22 (22-30) mmol/L BUN 19 (9-20) mg/dL Creatinine 0.90 (0.66-1.25) mg/dL Glucose 87 (74-99) mg/dL Calcium 9.8 (8.4-10.2) mg/dL Total Bilirubin 0.5 (0.2-1.3) mg/dL AST 30 (17-59) U/L ALT 49 (21-72) U/L Alkaline Phosphatase 68 (38-126) U/L Total Protein 6.8 (6.3-8.2) g/dL Albumin 4.4 (3.5-5.0) g/dL - Imaging CT scan - abdomen: report reviewed, image reviewed Assessment and Plan Assessment: Impression/plan: 1. Abdominal discomfort/ileus versus partial small bowel obstruction 2. History of hiatal hernia repair 3. Degenerative disc disease Plan: 1. Repeat abdominal x-rays 2. May be able to start clear liquids
--- NOTE | 2017-07-03 12:40 | XR ---
EXAMINATION TYPE: XR abdomen 2V , 4 VIEWS DATE OF EXAM ORDERED: 07/03/2017 HISTORY: Rule out small bowel obstruction. COMPARISON: None. FINDINGS: The lung bases are clear. Within the abdomen, there are mildly distended air-filled loops of small bowel. There is some air in the colon. There is no free air. There is contrast in the bladder from a previous CT scan of yesterday. There are phleboliths in the p ami. IMPRESSION: LOCALIZED ILEUS VERSUS INCOMPLETE SMALL BOWEL OBSTRUCTION.
[2017-07-03] MEDS ORDERED: MELATONIN 3 MG TABLET PO PRN (12:52)
[2017-07-03] MEDS ORDERED: CALCIUM CARBONATE 500 MG CHEWABLE PO PRN (12:52)
[2017-07-03] MEDS ORDERED: ACETAMINOPHEN TAB 325 MG TAB PO PRN (12:52)
[2017-07-03] MEDS ORDERED: ALPRAZolam 0.25 MG TAB PO PRN (12:52)
[2017-07-03] MEDS ORDERED: ENOXAPARIN 40 MG/0.4 ML SYRINGE SQ SCH (13:00)
[2017-07-03] MEDS: SODIUM CHLORIDE 0.9% 1,000 ML IV SCH ×3 (13:05→23:42)
[2017-07-03] MEDS: PANTOPRAZOLE 40 MG TABLET PO SCH (16:06)
[2017-07-03] MEDS: HEPARIN SODIUM,PORCINE 5,000 UNIT/ML 1 ML VIAL SQ SCH ×2 (16:44→23:39)
--- NOTE | 2017-07-03 18:40 | HP ---
HISTORY AND PHYSICAL DATE OF ADMISSION: July 03, 2017. DATE OF SERVICE: 07/03/17 PRESENTING COMPLAINT: Nausea and vomiting. HISTORY OF PRESENTING COMPLAINT: A very pleasant 56 year old patient of Dr. Brenner. The patient on May 27, 2017, underwent Jim fundoplication for uncontrolled symptoms of GERD by Dr. Laura. The patient has been having abdominal pain on and off since the surgery he states and has gone and seen his family doctor. Also been having dry heaves intermittently. The patient did have an outpatient abdominal x-ray. He was told he has a possible partial possibly partial small-bowel obstruction, but the patient is able to keep his food down. Not having bowel movements. In the last the last 24 hours, patient started having increasing amount of nausea, vomiting, increasing epigastric pain and decided to come in. Had abdominal x-ray and a repeat CT scan that showed partial small-bowel obstruction. No NG tube was placed. The patient did have a bowel movement yesterday. Denies any fever. Abdominal pain actually is better, lying in bed. General surgery was consulted who asked the patient to be started on clear liquids. REVIEW OF SYSTEM: Review of systems: Constitutional: Tired. HEENT none. Respiratory none. Cardiovascular none. Gastrointestinal as above. none. Musculoskeletal none. Dermatological, hematologic, lymphatics none. Psychiatry none. Neurological none. PAST MEDICAL HISTORY: Past medical history of COPD, GERD, pneumonia. PAST SURGICAL HISTORY: Hernia repair, tonsillectomy, C5-C7 vertebra placement. SOCIAL HISTORY: Patient lives with a fiancee. Smoked for 25 years. Stopped in 1999. The patient is a truck driver heavy. Alcohol rarely. FAMILY HISTORY: Stroke. HOME MEDICATIONS: 1. Omeprazole 20 mg b.i.d. 2. [place] 7.5 one tab q.4h p.r.n. 3. Multivitamin 1 tablet p.o. daily. 4. Colace 100 mg b.i.d. 5. Ventolin 2 puffs q.6h p.r.n. ALLERGIES: None. PHYSICAL EXAMINATION: Temperature 97.8, pulse 65, respiratory rate 16, blood pressure 120/75, pulse ox 97% on room air. General appearance: Average build, lying in bed, tired appearing. Eyes pupils equal. Conjunctivae normal. HEENT: External appearance of nose and ears normal. Oral cavity normal. Neck JVD not raised. Mass not palpable. Respiratory effort are slightly decreased breath sounds. Cardiovascular 1st and 2nd sounds normal. No edema. ABDOMEN: Soft. Some epigastric tenderness. No guarding or rigidity. Bowel sounds are present. Lymphatics: No lymph node palpable in the neck or axilla. PSYCHIATRY: Alert and oriented times 3. Mood and affect normal. Neurological: Pupils equal. Cranial nerves grossly intact. Power and sensation grossly intact. INVESTIGATIONS: Abdominal x-ray and CT scan of the abdomen shows possible partial small-bowel obstruction. ASSESSMENT: 1. Possible small bowel obstruction in a patient having slight epigastric upper abdominal pain since the surgery about 6 weeks ago for hiatal hernia, presented with nausea, vomiting. Patient did have a bowel movement yesterday. No fever. 2. Chronic obstructive pulmonary disease in an ex smoker. 3. Stress-induced leukocytosis. No evidence of infection. PLAN: General surgery was consulted. Dr. Keila Craft saw the patient. Ordered clear liquids. We will have the patient take IV fluids. Care was discussed with the patient. Will give DVT prophylaxis. MMODL / IJN: [id number] /
[2017-07-04] MEDS: MORPHINE SULFATE 4 MG/0.8 ML SYRINGE (INJ) IV PRN ×5 (05:08→22:18)
[2017-07-04 07:05] LABS: Basophils % (A) 0 %; Eosinophils # (A) 0.4 k/uL (0-0.7); Eosinophils % (A) 4 %; HCT 41.3 % (39.0-53.0); Lymphocytes % (A) 12 %; MCH 29.2 pg (25.0-35.0); MCHC 33.9 g/dL (31.0-37.0); Mean Platelet Volume 6.3; Monocytes # (A) 0.5 k/uL (0-1.0); Monocytes % (A) 6 %; Neutrophils # (A) 6.2 k/uL (1.3-7.7); Neutrophils % (A) 76 %; Platelet Count 315 k/uL (150-450); RDW 12.1 % (11.5-15.5); WBC 8.2 k/uL (3.8-10.6)
[2017-07-04] MEDS: HEPARIN SODIUM,PORCINE 5,000 UNIT/ML 1 ML VIAL SQ SCH ×3 (08:16→23:39)
--- NOTE | 2017-07-04 08:30 | XR ---
2 view abdomen HISTORY: Abdomen pain, NG tube placement 2 views of the abdomen submitted and correlated to prior exam or 03/05/2017 There has been interval placement of an NG tube which is coiled within stomach. Patchy density at the lung bases is compatible with atelectasis. There is no evident pneumoperitoneum. There is improvemen t in the air-fluid level seen on previous exam. Probable vascular calcifications are present within t he pelvis. There may be prostate calcifications. Bone mineralization is normal. IMPRESSION: Interval NG tube placement, improvement in appearance of obstruction. Correlate.
[2017-07-04] MEDS ORDERED: ONDANSETRON 4 MG/2 ML VIAL IVP PRN ×3 (08:33→15:58)
[2017-07-04] MEDS: PANTOPRAZOLE 40 MG TABLET PO SCH (08:34)
[2017-07-04] MEDS: SODIUM CHLORIDE 0.9% 1,000 ML IV SCH (09:45)
--- NOTE | 2017-07-04 16:53 | P.PN ---
Progress Note - Text Progress Note Date: 07/04/17 The patient's resting comfortably in his bed. He denies any significant abdominal pain. He's had no further flatus. On exam his vital signs are stable. His abdomen is soft. Patient's CAT scan was reviewed. He appears to have some small bowel dilatation. It is unclear if he has an ileus or a partial small bowel charge. Patient will remain nothing by mouth. Once he has flatus we will remove his NG tube. If he has no significant bowel function he will undergo repeat CAT scan.
[2017-07-04] MEDS: DEXTROSE 5%-0.45% NACL 1,000 ML IV SCH (18:50)
--- NOTE | 2017-07-04 18:53 | PN ---
PROGRESS NOTE DATE OF SERVICE: 07/04/17 PRESENTING COMPLAINT: Nausea and vomiting. INTERVAL HISTORY: This patient recently had a Jim fundoplication, followed. Now admitted with what may be a partial small-bowel obstruction. NG tube was placed yesterday. No further nausea. The patient has not passed any flatus. at the bedside. Minimal abdominal pain. REVIEW OF SYSTEMS: Done for constitutional, cardiovascular, GI, pulmonary; relevant findings as above. CURRENT MEDICATIONS: Reviewed that include normal saline. PHYSICAL EXAMINATION: Temperature 97.6, pulse 83, respiration 16, blood pressure 101/57, pulse ox 94% on room air. GENERAL APPEARANCE: Lying in bed, tired appearing. EYES: Pupils equal. Conjunctivae normal. HEENT: External appearance of nose and ears normal. Oral cavity normal. NECK: JVD not raised. Mass not palpable. RESPIRATORY: Effort normal. Lungs, slightly decreased breath sounds. CARDIOVASCULAR: First and second sounds. No edema. ABDOMEN: Soft. Some epigastric tenderness. Bowel sounds are sluggish. Liver and spleen not palpable. PSYCHIATRY: Alert and oriented x3. Mood and affect normal. INVESTIGATIONS: White count 8.2, hemoglobin 14. Abdominal x-ray from today shows improvement in the appearance of obstruction. ASSESSMENT: 1. Possible small bowel obstruction in a patient who has recently had a hiatal hernia surgery. NG tube in place, not passed any flatus. 2. Chronic obstructive pulmonary disease in an ex-smoker. 3. Rest induced leukocytosis, improved. 4. Acute anuria. PLAN: Continue with IV fluids. Will change it to D5W. Follow with Dr. Ramirez. Let him decide when to clamp the tube. MMODL / IJN: [id number] /
[2017-07-05] MEDS: HYDROcodone/APAP 7.5-325MG 1 EACH TAB PO PRN ×5 (02:25→20:36)
[2017-07-05] MEDS: DEXTROSE 5%-0.45% NACL 1,000 ML IV SCH ×3 (03:40→18:11)
[2017-07-05] MEDS: PANTOPRAZOLE 40 MG TABLET PO SCH (07:25)
[2017-07-05] MEDS: HEPARIN SODIUM,PORCINE 5,000 UNIT/ML 1 ML VIAL SQ SCH ×2 (07:26→15:53)
[2017-07-05] MEDS ORDERED: MORPHINE ORAL SOLN 10 MG/5 ML CUP PO PRN (08:22)
--- NOTE | 2017-07-05 23:14 | PN ---
PROGRESS NOTE DATE OF SERVICE: 07/05/2017 PRESENTING COMPLAINT: Abdominal pain. INTERVAL HISTORY: Patient is status post Ijm fundoplication, presented with partial small-bowel obstruction, did have NG that was taken off last night. The patient is feeling better this morning, had some clear liquids, did pass some flatus. Family at the bedside. REVIEW OF SYSTEMS: Done for constitutional, cardiovascular, GI, pulmonary; relevant findings as above. CURRENT MEDICATIONS: Reviewed. EXAMINATION: Temperature 97.5, pulse 83, respirations 16, blood pressure 113/64, pulse ox 95% on room air. GENERAL APPEARANCE: Lying in bed, more comfortable. EYES: Pupils equal. Conjunctivae normal. HEENT: External nose and ears normal. Oral cavity normal. NECK: JVD not raised. Mass not palpable. RESPIRATORY: Effort normal. LUNGS: Decreased breath sounds. CARDIOVASCULAR: First and second sounds normal. No edema. ABDOMEN: Soft. Mild epigastric tenderness. Bowel sounds are present. Liver and spleen not palpable. PSYCHIATRY: Alert and oriented x3. Mood and affect are normal. INVESTIGATIONS: White count 8.2, hemoglobin 14. ASSESSMENT: 1. Partial small-bowel obstruction following recent surgery, now clinically improved. Nasogastric tube is out. 2. Chronic obstructive pulmonary disease in an ex-smoker. 3. Stress-induced leukocytosis, improved. PLAN: Care was discussed with the patient and family at the bedside. Diet will be advanced per Dr. Laura. Continue with IV fluids. MMODL / IJN: [id number] /
[2017-07-06] MEDS: HEPARIN SODIUM,PORCINE 5,000 UNIT/ML 1 ML VIAL SQ SCH ×4 (00:40→23:43)
[2017-07-06] MEDS: HYDROcodone/APAP 7.5-325MG 1 EACH TAB PO PRN ×5 (00:51→21:10)
[2017-07-06] MEDS: DEXTROSE 5%-0.45% NACL 1,000 ML IV SCH ×3 (00:52→19:41)
--- NOTE | 2017-07-06 08:55 | P.PN ---
Progress Note - Text Progress Note Date: 07/05/17 the patient is resting comfortably in his bed. He is requesting more to eat. He has had flatus and bowel movements. On exam his vital signs are still. His abdomen is soft. He has some minimal epigastric tenderness. Patient will start to have his diet advanced. If he shows any evidence of small bowel obstruction he'll undergo repeat CAT scan.
[2017-07-06] MEDS: PANTOPRAZOLE 40 MG TABLET PO SCH (10:15)
[2017-07-06] MEDS ORDERED: RX INFO: IV CONTRAST WAS GIVEN 1 EACH MISC MISCELLANE PRN (10:30)
[2017-07-06] MEDS: IOPAMIDOL-300 CONTRAST 30 ML VIAL (ORAL USE) PO PRN ×2 (11:56→12:48)
--- NOTE | 2017-07-06 13:58 | CT ---
EXAMINATION TYPE: CT abdomen pelvis w con DATE OF EXAM: 07/06/2017 COMPARISON: CT 07/02/2017 and 02/19/2015 HISTORY: F/U obstruction CT DLP: 1378 mGycm Automated exposure control for dose reduction was used. TECHNIQUE: Helical acquisition of images from the lung bases through the pelvis have been completed. CONTRAST: Performed with Oral Contrast and with IV Contrast, patient injected with 100 mL of Isovue 300. FINDINGS: Postop changes compatible with Jim fundoplication again noted at the gastroesophageal ju nction LUNG BASES: Some minimal dependent atelectatic changes are present similar to previous exam, no sizab le pleural or pericardial effusion evident. AORTA: No significant abnormality is appreciated. LIVER/GB: No significant interval change is appreciated. The liver shows low attenuation possibly due to hepatic steatosis, some hypodensity within the periportal location is not well defined but is sta ble dating to 02/19/2015. Gallbladder is normal. PANCREAS: Unchanged SPLEEN: Stable, splenule suspected the level of the tail of pancreas as on prior. ADRENALS: No significant interval change is seen. KIDNEYS: Stable, there are small cortical cysts REPRODUCTIVE ORGANS: Prostate calcifications again seen. Ostomies enlarged and shows an inferior impr ession on the urinary bladder BOWEL: No evident bowel obstruction, contrast courses to the level of the ascending colon. There is no evident appendicitis FREE AIR: No Free Air visible. ASCITES: None visible. PELVIC ADENOPATHY: None visualized. RETROPERITONEAL ADENOPATHY: No Retroperitoneal Adenopathy visible. URINARY BLADDER: No significant abnormality is seen. OSSEOUS STRUCTURES: No significant abnormality is seen. IMPRESSION: NO EVIDENT BOWEL OBSTRUCTION. NONAGGRESSIVE APPEARANCE OF HYPODENSITY IN THE LIVER ON AXIAL IMAGE 18 THROUGH 20, LIVER MRI OR FOLLOW-UP COULD BE PERFORMED TO ASSESS FOR STABILITY.
--- NOTE | 2017-07-06 17:28 | P.PN ---
Progress Note - Text Progress Note Date: 07/06/17 The patient had some complaints of abdominal pain and nausea earlier today. He underwent CAT scan which showed no evidence of bowel obstruction. Patient states that he has had chronic nausea and indigestion for several weeks. On exam his vital signs are stable. His abdomen soft there is some minimal tenderness in the right and left epigastric area. A lengthy discussion with the patient's . He does not have any evidence of bowel obstruction. Due to his persistent symptoms of epigastric pain and nausea when eating. The patient be scheduled for an EGD and a HIDA scan to evaluate for possibility dysfunction. We will plan for EGD tomorrow morning.
[2017-07-06] MEDS: METOCLOPRAMIDE 5 MG TAB PO SCH (17:48)
--- NOTE | 2017-07-06 18:57 | PN ---
PROGRESS NOTE DATE OF SERVICE: 07/06/17 PRESENTING COMPLAINT: Abdominal pain. INTERVAL HISTORY: Patient is status post Jim fundoplication, presents with partial small bowel obstruction status post NG tube. The patient did have oatmeal this morning, started having more epigastric pain and nausea. A CT scan of the abdomen was done. This was essentially unremarkable. Patient has passed flatus. No bowel movement. REVIEW OF SYSTEMS: Done for constitutional, cardiovascular, GI and pulmonary relevant findings as above. CURRENT MEDICATIONS: Reviewed. EXAMINATION: Temperature 97.7, pulse 52, respirations 18, blood pressure 120/79, pulse ox 95% on room air. General appearance: Lying in bed, awake. Eyes: Pupil equal, conjunctivae normal. HEENT external appearance of nose and ears normal. Oral cavity normal. Neck JVD not raised. Mass not palpable. Respiratory effort lungs decreased breath sounds. Cardiovascular 1st and 2nd sounds normal. No edema. Abdomen epigastric tenderness. Bowel sounds are present. PSYCHIATRY: Alert and oriented x3. Mood and affect is normal. INVESTIGATIONS: CT scan of the abdomen unremarkable. ASSESSMENT: 1. Status post Jim fundoplication about 5 weeks ago. 2. Partial small-bowel obstruction with clinical and radiological improvement. 3. Persistent epigastric pain, felt to be postop and nausea. 4. Chronic obstructive pulmonary disease in an ex-smoker. PLAN: Care was discussed with the patient and at the bedside. I did tell him to discuss with Dr. Laura as all the symptoms have resulted following the surgery. Check if everything more is to be offered at this point, probably wait and watch may be the best way to go. We will try Reglan to see if that helps. We will also get a Gastroenterology opinion to see if there is anything else to offer at this point. I did tell the patient to try to ambulate as far as possible and maintain more of an upright position. MMODL / IJN: [id number] /
[2017-07-07] MEDS: HYDROcodone/APAP 7.5-325MG 1 EACH TAB PO PRN (01:09)
[2017-07-07] MEDS: DEXTROSE 5%-0.45% NACL 1,000 ML IV SCH ×2 (01:12→10:29)
[2017-07-07 08:13] VITALS: RESP 16
[2017-07-07] MEDS: METOCLOPRAMIDE 5 MG TAB PO SCH ×3 (08:39→15:47)
[2017-07-07] MEDS: HEPARIN SODIUM,PORCINE 5,000 UNIT/ML 1 ML VIAL SQ SCH ×2 (08:39→15:05)
[2017-07-07] MEDS: PANTOPRAZOLE 40 MG TABLET PO SCH (08:39)
--- NOTE | 2017-07-07 10:02 | NM ---
EXAMINATION TYPE: NM hepatobiliary w CCK DATE OF EXAM: 07/07/2017 COMPARISON: CT 07/06/2017 HISTORY: Nausea and abdominal pain TECHNIQUE: After the intravenous administration of 4.9 mCi Tc 99m Mebrofenin hepatobiliary scintigrap hy is performed. Immediate images post injection. FINDINGS: There is satisfactory initial accumulation of tracer by the liver. The gallbladder is visualized wit hin 10 minutes. The small bowel activity is noted within 10 minutes. At one hour CCK was administer ed, patient was injected with 1.6 mcg of Kinevac, and gallbladder ejection fraction is calculated at 42 %, in the normal range. Therefore there is no scintigraphic evidence of cystic or common bile carly t obstruction to suggest acute cholecystitis or gallbladder dyskinesia. IMPRESSION: Exam is within normal limits.
[2017-07-07] MEDS ORDERED: IV FLUID CONTINUATION 1,000 ML IV ONE (12:29)
--- NOTE | 2017-07-07 12:43 | P.OP ---
Date of Procedure: 07/07/17 Preoperative Diagnosis: Left upper quadrant pain Nausea Postoperative Diagnosis: Mild antral gastritis No evidence of GE junction obstruction No evidence of gastric outlet obstruction No evidence of esophagitis Procedure(s) Performed: EGD Anesthesia: MAC Surgeon: Christopher Laura Pathology: other (Antrum) Condition: stable Disposition: PACU Description of Procedure: The patient's placed on the endoscopy table in the lateral position. He received IV sedation. The gastroscope placed oropharynx and passed in the esophagus and into the stomach. The scope was then placed through the pylorus. The first and second portion of the duodenum was normal. Scope was then brought back the antrum and this was mildly inflamed. A biopsies performed. There is no evidence of any ulcers. The scope was unretroflexed and remainder stomach appeared normal. There is no evidence of a hiatal hernia. The patient had a fundoplication wrap the lower portion esophagus. There is no incision any obstruction of the GE junction. The distal esophagus. Normal. The proximal esophagus appeared normal. Scope was withdrawn for patient.
--- NOTE | 2017-07-07 12:43 | P.PN ---
Progress Note - Text Progress Note Date: 07/07/17 The patient still has some complaints of left upper quadrant pain. His HIDA scan performed today was normal. He had an EGD performed today as well which showed some mild gastritis. The patient will be started on regular diet. The source of his left upper quadrant pain is still not identified.
[2017-07-07 13:26] VITALS: TEMP 97.6
[2017-07-07 14:55] VITALS: BP 142/79
[2017-07-07 14:56] VITALS: PULSE 56
--- NOTE | 2017-07-07 23:46 | DS ---
DISCHARGE SUMMARY DATE OF ADMISSION: 07/03/2017. DATE OF DISCHARGE: 07/07/2017 FINAL DIAGNOSES: 1. Partial small-bowel obstruction. 2. Status post Jim fundoplication 5 weeks ago. 3. Chronic gastritis. 4. Chronic obstructive pulmonary disease in an ex-smoker. HOSPITAL COURSE: This very pleasant gentleman, of Dr. Brenner on May 27 underwent Jim fundoplication for GERD symptoms by Dr. Laura. The patient has been having abdominal pain and nausea since then on and off, had more dry heaving and vomiting, was found to have partial small-bowel obstruction. Patient did have an NG tube that was placed. CT scan of the abdomen and pelvis subsequently did not show any further obstruction after NG tube was placed. Hepatobiliary scan was within normal limits. The patient did go undergo EGD by Dr. Laura this morning that showed some element of gastritis. I had put the patient on Reglan yesterday with some relief. I did talk to Dr. Laura over the phone today and spoke at length with the patient and . I did talk about the diet being easy and soft and follow up with Dr. Larua as an outpatient. Will probably take a while to heal. EXAMINATION: ABDOMEN: Mild epigastric tenderness. LUNGS: Fair entry. DISCHARGE MEDICATIONS: 1. Ventolin HFA 2 puffs every 6 hours p.r.n. 2. Reglan 5 mg a.c. t.i.d. 42 tablets. 3. Protonix 40 mg with breakfast. DIET: Soft, well-chewed food. FOLLOWUP: With Dr. Brenner on 07/11/2017. Follow up with Dr. Laura on 07/14/2017. Discharge planning more than 35 minutes. MMODL / IJN: [id number] /
== END 2017-07-07 16:05 | disposition home or self-care (01) | DRG 390 ==
LOC: EC 22:21 → 3SUR 07-03 00:44
PROVIDERS: ADMIT Hospitalist; ATTEND Hospitalist
PROC: 0DB68ZX Excision of Stomach, Via Natural or Artificial Opening Endoscopic, Diagnostic (ICD-10-PCS; principal; 2017-07-03)
DX: K56.600 Partial intestinal obstruction, unspecified as to cause (principal); R34 Anuria and oliguria; J44.9 Chronic obstructive pulmonary disease, unspecified; K29.50 Unspecified chronic gastritis without bleeding; K29.60 Other gastritis without bleeding; K21.9 Gastro-esophageal reflux disease without esophagitis; Z87.01 Personal history of pneumonia (recurrent); Z87.19 Personal history of other diseases of the digestive system; Z90.89 Acquired absence of other organs; Z87.891 Personal history of nicotine dependence; Z82.3 Family history of stroke; Z79.899 Other long term (current) drug therapy; Z79.891 Long term (current) use of opiate analgesic
CPT/HCPCS: 36415; 43239; 74019; 74177; 78227; 80053; 81003; 83605; 83690; 83735; 85025; 85610; 85730; 88305; 96361; 96374; 96375; 99285

== ENCOUNTER 2018-01-05 01:12 | Emergency (ER) | payer BC, OTHER ==
[2018-01-05] MEDS ORDERED: KETOROLAC 30 MG/ML 1 ML VIAL IVP STA (01:46)
[2018-01-05] MEDS ORDERED: diphenhydrAMINE 50 MG/ML 1 ML VIAL IVP STA (01:46)
[2018-01-05] MEDS ORDERED: METOCLOPRAMIDE 5 MG/ML 2 ML VIAL IVP STA (01:46)
[2018-01-05] MEDS ORDERED: SODIUM CHLORIDE 0.9% 1,000 ML IV STA (01:55)
--- NOTE | 2018-01-05 03:22 | ED ---
General Adult HPI - General Chief complaint: Headache Stated complaint: MIGRAINE Time Seen by Provider: 01/05/18 01:26 Source: patient, RN notes reviewed Mode of arrival: ambulatory Limitations: no limitations - History of Present Illness Initial comments: 57-year-old male presents to the emergency department for a chief complaint of headache times one day. Patient states he has had a headache on and off for the past few weeks. He states he was recently evaluated in [place] for this. He states he was admitted at that time and received multiple tests including a CAT scan and blood work. Patient states he was ultimately diagnosed with migraines and his primary care started him on migraine medications. Patient states that he has blurry vision when he gets these headaches. He denies nausea. Patient states he also feels "out of it." He describes headache as a generalized headache. He admits sometimes the lights do irritate his eyes. Patient states he sometimes cannot follow conversation because of the pain which has been on and off since he was last admitted in [place] weeks ago.. Patient states he has an appointment scheduled with a neurologist next month. Patient has no other complaints at this time including shortness of breath, chest pain, abdominal pain, nausea or vomiting, headache, or visual changes. - Related Data Home Medications Medication Instructions Recorded Confirmed No Known Home Medications 01/05/18 01/05/18 Allergies Allergy/AdvReac Type Severity Reaction Status Date / Time No Known Allergies Allergy Verified 07/03/17 13:02 Review of Systems ROS Statement: Those systems with pertinent positive or pertinent negative responses have been documented in the HPI. ROS Other: All systems not noted in ROS Statement are negative. Past Medical History Past Medical History: COPD, GERD/Reflux, Pneumonia Additional Past Medical History / Comment(s): . History of Any Multi-Drug Resistant Organisms: None Reported Past Surgical History: Hernia Repair, Orthopedic Surgery, Tonsillectomy Additional Past Surgical History / Comment(s): c5-c7 vertebrae replacement surg on 06/06/14. Rt knee arthrscopy, EGD W/ BX(BX WAS NEG) Past Anesthesia/Blood Transfusion Reactions: No Reported Reaction Past Psychological History: No Psychological Hx Reported Smoking Status: Former smoker Past Alcohol Use History: Rare Past Drug Use History: None Reported - Past Family History Father Family Medical History: CVA/TIA Additional Family Medical History / Comment(s): Father is currently hospitalized here at [facility] with mini strokes. Mother Family Medical History: No Reported History Additional Family Medical History / Comment(s): Mother is healthy. General Exam Limitations: no limitations General appearance: alert, in no apparent distress Head exam: Present: atraumatic, normocephalic, normal inspection Eye exam: Present: normal appearance, PERRL, EOMI. Absent: scleral icterus, conjunctival injection, periorbital swelling ENT exam: Present: normal exam, mucous membranes moist Neck exam: Present: normal inspection, full ROM. Absent: tenderness, meningismus, lymphadenopathy Respiratory exam: Present: normal lung sounds bilaterally. Absent: respiratory distress, wheezes, rales, rhonchi, stridor Cardiovascular Exam: Present: regular rate, normal rhythm, normal heart sounds. Absent: systolic murmur, diastolic murmur, rubs, gallop, clicks Neurological exam: Present: alert, oriented X3, CN II-XII intact, normal gait Expanded Patient oriented to: Present: person, place, time Speech: Present: fluid speech Cranial nerves: EOM's Intact: Normal, Tongue Deviation: Normal, Nystagmus: Normal, Facial Sensation: Normal Cerebellar function: Finger to Nose: Normal, Heel to Chaves: Normal, Romberg: Normal Upper motor neuron: Pronator Drift: Normal Sensory exam: Upper Extremity Light Touch: Normal, Upper Extremity Pin Prick: Normal, Lower Extremity Light Touch: Normal, Lower Extremity Pin Prick: Normal Motor strength exam: RUE: 5, LUE: 5, RLE: 5, LLE: 5 Eye Response: (4) open spontaneously Motor Response: (6) obeys commands Verbal Response: (5) oriented [place] Total: 15 Psychiatric exam: Present: normal affect, normal mood Course Vital Signs 01/05/18 01:14 Temperature 97.9 F Pulse Rate 87 Respiratory 20 Rate Blood Pressure 141/100 O2 Sat by Pulse 98 Oximetry EKG Findings - EKG Comments: EKG Findings:: Normal sinus rhythm, ventricular rate 72, MI interval 148, QTc 433 Medical Decision Making - Medical Decision Making 57-year-old male presents for chief complaint of headache since Tuesday. Patient states this has been on and off for about one month. Patient was admitted a couple weeks ago in [place] and did receive an extensive workup at that time including a negative CAT scan and blood work. Patient states he was discharged in all family diagnosed with migraines. He states he has an appointment coming up with a neurologist in the next month. Patient states that today the headache came back. He states with these he gets blurry vision and feels like he cannot carry on a conversation due to the pain and he felt "out of it." On exam no focal neuro deficits. Patient is well-appearing. He is urinating without any difficulty and has clear fluid speech. He is able to carry on a full conversation with me and is alert and oriented 3. Patient was given medications which did greatly help with his pain relief. He states he is feeling a lot better after receiving these as well as fluids. At this time nothing it is necessary to repeat the CAT scan as headache is consistent with previous headaches over several weeks when he already had a negative CAT scan 2 weeks ago. EKG showed a normal sinus rhythm. At this time patient will be given another name of her neurologist and told to follow-up with primary care. He will continue his medications for migraines at home. Patient agrees with this plan He will return is any neurological deficits or worsening symptoms. Disposition Clinical Impression: Headache Disposition: HOME SELF-CARE Condition: Good Instructions: Acute Headache (ED) Additional Instructions: Please follow up with primary care and neurology tomorrow. Please continue to take your medications for pain. Please return immediately to the emergency department if you have any worsening symptoms. Is patient prescribed a controlled substance at d/c from ED?: No Referrals: Gilbert Brenner MD [Primary Care Provider] - 1-2 days Time of Disposition: 03:21
[2018-01-05 03:51] VITALS: BP 143/75; PULSE 77; RESP 18; TEMP 97.7
== END 2018-01-05 03:52 | disposition home or self-care (01) ==
LOC: EC 01:12
DX: G43.909 Migraine, unspecified, not intractable, without status migrainosus (principal); Z87.891 Personal history of nicotine dependence
CPT/HCPCS: 99283; 96374; 96375 ×2; 96361 ×2; J1200; J2765; J1885

== ENCOUNTER 2019-01-28 16:32 | Emergency (ER) | payer BC, OTHER ==
[2019-01-28] MEDS ORDERED: SODIUM CHLORIDE 0.9% 1,000 ML IV STA (16:45)
[2019-01-28] MEDS ORDERED: KETOROLAC 30 MG/ML 1 ML VIAL IVP STA (16:45)
--- NOTE | 2019-01-28 16:53 | ED ---
Abdominal Pain HPI - General Chief Complaint: Abdominal Pain Stated Complaint: abd pain Time Seen by Provider: 01/28/19 16:38 Source: patient Mode of arrival: ambulatory Limitations: no limitations - History of Present Illness Initial Comments: Patient is a 58-year-old male presenting to the emergency department with complaints of right-sided abdominal pain that started suddenly this morning. Patient states this pain woke him up from sleep approximately 5 AM this morning. Patient states the pain has been intermittent but has been increasing in sev erity. Patient states he was walking through [employer] prior to arrival and had an intense pain which he thought he was going to pass out from. Patient denies any fever, chills, nausea, vomiting, diarrhea. Patient has no other complaints at this time. Patient states he has had kidney stones in the past but this feels different. Admits to prior hiatal hernia repair, no other abdominal surgeries. Upon arrival to the ER, vital signs are stable. - Related Data Home Medications Medication Instructions Recorded Confirmed Atorvastatin [Lipitor] 40 mg PO DAILY 01/28/19 01/28/19 Cyanocobalamin (Vitamin B-12) 1,000 mcg PO DAILY 01/28/19 01/28/19 [Vitamin B-12] Previous Rx's Medication Instructions Recorded Ketorolac [Toradol] 10 mg PO Q8HR #15 tab 01/28/19 Ondansetron Odt [Zofran Odt] 4 mg PO Q8HR PRN #10 tab 01/28/19 Tamsulosin [Flomax] 0.4 mg PO DAILY #7 cap 01/28/19 Allergies Allergy/AdvReac Type Severity Reaction Status Date / Time No Known Allergies Allergy Verified 01/28/19 18:03 Review of Systems ROS Statement: Those systems with pertinent positive or pertinent negative responses have been documented in the HPI. ROS Other: All systems not noted in ROS Statement are negative. Past Medical History Past Medical History: COPD, GERD/Reflux, Pneumonia Additional Past Medical History / Comment(s): . History of Any Multi-Drug Resistant Organisms: None Reported Past Surgical History: Hernia Repair, Orthopedic Surgery, Tonsillectomy Additional Past Surgical History / Comment(s): c5-c7 vertebrae replacement surg on 06/06/14. Rt knee arthrscopy, EGD W/ BX(BX WAS NEG) Past Anesthesia/Blood Transfusion Reactions: No Reported Reaction Past Psychological History: No Psychological Hx Reported Smoking Status: Former smoker Past Alcohol Use History: Rare Past Drug Use History: None Reported - Past Family History Father Family Medical History: CVA/TIA Additional Family Medical History / Comment(s): Father is currently hospitalized here at [facility] with mini strokes. Mother Family Medical History: No Reported History Additional Family Medical History / Comment(s): Mother is healthy. General Exam - General Exam Comments Initial Comments: GENERAL: Well-appearing, well-nourished and in no acute distress. HEAD: Atraumatic, normocephalic. EYES: Pupils equal round and reactive to light, extraocular movements intact, sclera anicteric, conjunctiva are normal. ENT: TMs normal, nares patent, oropharynx clear without exudates. Moist mucous membranes. NECK: Normal range of motion, supple without lymphadenopathy or JVD. LUNGS: Breath sounds clear to auscultation bilaterally and equal. No wheezes rales or rhonchi. HEART: Regular rate and rhythm without murmurs, rubs or gallops. ABDOMEN: Pain with palpation of the right side of the abdomen, right lower/upper quadrant, suprapubic. Soft, normoactive bowel sounds. No masses appreciated. : Deferred EXTREMITIES: Normal range of motion, no pitting or edema. No clubbing or cyanosis. NEUROLOGICAL: Cranial nerves II through XII grossly intact. Normal speech, normal gait. PSYCH: Normal mood, normal affect. SKIN: Warm, Dry, normal turgor, no rashes or lesions noted. Limitations: no limitations Course Vital Signs 01/28/19 16:33 Temperature 98.1 F Pulse Rate 66 Respiratory 16 Rate Blood Pressure 134/84 O2 Sat by Pulse 97 Oximetry Medical Decision Making - Medical Decision Making Patient is a 58-year-old male presenting with right-sided abdominal pain started suddenly this morning. Pain is colicky in nature. Patient's vital signs are stable, afebrile. Lab work shows no acute processes. CT of the abdomen shows an obstructing calculus in the proximal left ureter with mild left-sided hydronephrosis. No other renal stones are seen. The appendix appears normal, gallbladder appears normal no right sided kidney stones. There is discussed with patient this is most likely a left-sided renal stone even though he's been having right-sided abdominal pain. No other acute findings noted on the right side of the abdomen. Patient was given fluids as well as pain control reports improvement in symptoms. Patient is stable for discharge at this time. Patient will be discharged with Flomax as well as pain meds and will follow-up with his PCP. Return parameters were discussed with the patient he verbalizes understanding. Case discussed with Dr. Obregon. - Lab Data Result diagrams: 01/28/19 17:06 01/28/19 17:06 Lab Results 01/28/19 01/28/19 01/28/19 Range/Units 17:06 17:06 17:06 WBC 8.1 (3.8-10.6) k/uL RBC 5.25 (4.30-5.90) m/uL Hgb 15.8 (13.0-17.5) gm/dL Hct 46.2 (39.0-53.0) % MCV 88.0 (80.0-100.0) fL MCH 30.2 (25.0-35.0) pg MCHC 34.3 (31.0-37.0) g/dL RDW 12.1 (11.5-15.5) % Plt Count 357 (150-450) k/uL Neutrophils % 64 % Lymphocytes % 20 % Monocytes % 7 % Eosinophils % 5 % Basophils % 1 % Neutrophils # 5.2 (1.3-7.7) k/uL Lymphocytes # 1.6 (1.0-4.8) k/uL Monocytes # 0.6 (0-1.0) k/uL Eosinophils # 0.4 (0-0.7) k/uL Basophils # 0.1 (0-0.2) k/uL PT 9.5 (9.0-12.0) sec INR 0.9 (<1.2) APTT 23.7 (22.0-30.0) sec Sodium 139 (137-145) mmol/L Potassium 4.2 (3.5-5.1) mmol/L Chloride 108 H (98-107) mmol/L Carbon Dioxide 24 (22-30) mmol/L Anion Gap 7 mmol/L BUN 19 (9-20) mg/dL Creatinine 1.00 (0.66-1.25) mg/dL Est GFR (CKD-EPI)AfAm >90 (>60 ml/min/1.73 sqM) Est GFR (CKD-EPI)NonAf 83 (>60 ml/min/1.73 sqM) Glucose 94 (74-99) mg/dL Calcium 9.4 (8.4-10.2) mg/dL Total Bilirubin 0.3 (0.2-1.3) mg/dL AST 21 (17-59) U/L ALT 29 (21-72) U/L Alkaline Phosphatase 89 (38-126) U/L Total Protein 7.2 (6.3-8.2) g/dL Albumin 4.5 (3.5-5.0) g/dL Amylase 127 H (30-110) U/L Lipase 125 (23-300) U/L Urine Color Urine Appearance (Clear) Urine pH (5.0-8.0) Ur Specific [place] (1.001-1.035) Urine Protein (Negative) Urine Glucose (UA) (Negative) Urine Ketones (Negative) Urine Blood (Negative) Urine Nitrite (Negative) Urine Bilirubin (Negative) Urine Urobilinogen (<2.0) mg/dL Ur Leukocyte Esterase (Negative) Urine RBC (0-5) /hpf Urine WBC (0-5) /hpf Urine Mucus (None) /hpf 01/28/19 Range/Units 17:06 WBC (3.8-10.6) k/uL RBC (4.30-5.90) m/uL Hgb (13.0-17.5) gm/dL Hct (39.0-53.0) % MCV (80.0-100.0) fL MCH (25.0-35.0) pg MCHC (31.0-37.0) g/dL RDW (11.5-15.5) % Plt Count (150-450) k/uL Neutrophils % % Lymphocytes % % Monocytes % % Eosinophils % % Basophils % % Neutrophils # (1.3-7.7) k/uL Lymphocytes # (1.0-4.8) k/uL Monocytes # (0-1.0) k/uL Eosinophils # (0-0.7) k/uL Basophils # (0-0.2) k/uL PT (9.0-12.0) sec INR (<1.2) APTT (22.0-30.0) sec Sodium (137-145) mmol/L Potassium (3.5-5.1) mmol/L Chloride (98-107) mmol/L Carbon Dioxide (22-30) mmol/L Anion Gap mmol/L BUN (9-20) mg/dL Creatinine (0.66-1.25) mg/dL Est GFR (CKD-EPI)AfAm (>60 ml/min/1.73 sqM) Est GFR (CKD-EPI)NonAf (>60 ml/min/1.73 sqM) Glucose (74-99) mg/dL Calcium (8.4-10.2) mg/dL Total Bilirubin (0.2-1.3) mg/dL AST (17-59) U/L ALT (21-72) U/L Alkaline Phosphatase (38-126) U/L Total Protein (6.3-8.2) g/dL Albumin (3.5-5.0) g/dL Amylase (30-110) U/L Lipase (23-300) U/L Urine Color Yellow Urine Appearance Clear (Clear) Urine pH 5.5 (5.0-8.0) Ur Specific [place] 1.020 (1.001-1.035) Urine Protein Negative (Negative) Urine Glucose (UA) Negative (Negative) Urine Ketones Negative (Negative) Urine Blood Negative (Negative) Urine Nitrite Negative (Negative) Urine Bilirubin Negative (Negative) Urine Urobilinogen <2.0 (<2.0) mg/dL Ur Leukocyte Esterase Trace H (Negative) Urine RBC 4 (0-5) /hpf Urine WBC 9 H (0-5) /hpf Urine Mucus Rare H (None) /hpf Disposition Clinical Impression: Left renal stone, Abdominal pain Disposition: HOME SELF-CARE Condition: Stable Instructions (If sedation given, give patient instructions): Kidney Stones (ED) Additional Instructions: Please return to the Emergency Department if symptoms worsen or any other concerns. Take medications as prescribed. Follow-up with PCP next week. Prescriptions: Tamsulosin [Flomax] 0.4 mg PO DAILY #7 cap Ketorolac [Toradol] 10 mg PO Q8HR #15 tab Ondansetron Odt [Zofran Odt] 4 mg PO Q8HR PRN #10 tab PRN Reason: Nausea Is patient prescribed a controlled substance at d/c from ED?: No Referrals: Gilbert Brenner MD [Primary Care Provider] - 1-2 days Eric Brice MD [STAFF PHYSICIAN] - 1-2 days
[2019-01-28 17:14] LABS: Basophils # (A) 0.1 k/uL (0-0.2); Basophils % (A) 1 %; Eosinophils # (A) 0.4 k/uL (0-0.7); Eosinophils % (A) 5 %; HCT 46.2 % (39.0-53.0); HGB 15.8 gm/dL (13.0-17.5); Lymphocytes # (A) 1.6 k/uL (1.0-4.8); Lymphocytes % (A) 20 %; MCH 30.2 pg (25.0-35.0); MCHC 34.3 g/dL (31.0-37.0); Mean Platelet Volume 6.4; Monocytes # (A) 0.6 k/uL (0-1.0); Monocytes % (A) 7 %; Neutrophils # (A) 5.2 k/uL (1.3-7.7); Neutrophils % (A) 64 %; Platelet Count 357 k/uL (150-450); RBC 5.25 m/uL (4.30-5.90); RDW 12.1 % (11.5-15.5); WBC 8.1 k/uL (3.8-10.6)
[2019-01-28 17:18] LABS: Appearance,Urine Clear (Clear); Bilirubin,Urine Negative (Negative); Blood,Urine Negative (Negative); Color,Urine Yellow; Glucose,Urine (UA) Negative (Negative); Ketones,Urine Negative (Negative); Leukocyte Esterase,Urine Trace (Negative); Mucus,Urine Rare /hpf; Nitrite,Urine Negative (Negative); PH, Urine 5.5 (5.0-8.0); Protein,Urine Negative (Negative); RBC,Urine 4 /hpf (0-5); Urobilinogen,Urine <2.0 mg/dL (<2.0)
[2019-01-28 17:25] LABS: INR 0.9 (<1.2); Prothrombin Time 9.5 sec (9.0-12.0)
[2019-01-28 17:26] LABS: Partial Thromboplastin Time 23.7 sec (22.0-30.0)
[2019-01-28 17:29] LABS: ALT 29 U/L (21-72); AST 21 U/L (17-59); African American GFR (CKD) >90 (>60 ml/min/1.73 sqM); Albumin 4.5 g/dL (3.5-5.0); Alkaline Phosphatase 89 U/L (38-126); Amylase 127 U/L (30-110); Anion Gap 7 mmol/L; Blood Urea Nitrogen 19 mg/dL (9-20); Calcium 9.4 mg/dL (8.4-10.2); Carbon Dioxide 24 mmol/L (22-30); Chloride 108 mmol/L (98-107); Glucose 94 mg/dL (74-99); Potassium 4.2 mmol/L (3.5-5.1); Sodium 139 mmol/L (137-145); Total Bilirubin 0.3 mg/dL (0.2-1.3); Total Protein 7.2 g/dL (6.3-8.2)
--- NOTE | 2019-01-28 17:29 | CT ---
EXAMINATION TYPE: CT abdomen pelvis wo con DATE OF EXAM: 01/28/2019 COMPARISON: 07/06/2017 HISTORY: RUQ pain/rt flank pain since am CT DLP: 513.9 mGycm Automated exposure control for dose reduction was used. TECHNIQUE: Helical acquisition of images was performed from the lung bases through the pelvis. FINDINGS: Lung bases are clear of consolidation. There is no pleural effusion. There is minimal subsegmental at electasis. There is small hiatal hernia. There are clips at the gastroesophageal junction. Stomach is otherwise intact. Heart size is normal. There is no pericardial effusion. Liver and spleen appear normal. Bile ducts are not dilated. Pancreas appears normal. Gallbladder appe ars normal. Bile ducts are not dilated. There is no adrenal mass. Kidneys have normal size. There is mild left-sided hydronephrosis. There is proximal left side hydroureter. There is 5 mm calculus proximal left ureter. There is no retroperito tobin adenopathy. Bladder distends smoothly. There is prostatic calcification. There is no inguinal he rnia. There is no free fluid in the pelvis. There is no mesenteric edema. There is no ascites or free air. There is no sign of a bowel obstruction. Appendix appears normal. Lumbar spine is intact. There is mild degenerative disc space narrowing in the mid and upper lumbar s pine. There is no compression fracture. Facet joints are intact. Bony pelvis is intact. IMPRESSION: THERE IS OBSTRUCTING CALCULUS PROXIMAL LEFT URETER WITH MILD LEFT-SIDED HYDRONEPHROSIS. NO OTHER ANNE L CALCULUS SEEN. Previous surgery at the gastric fundus and gastroesophageal junction. Small hiatal hernia increased c ompared to last exam. Obstruction of left kidney is new compared to old exam.
[2019-01-28] MEDS ORDERED: MORPHINE SULFATE 4 MG/ML SYRINGE IVP STA (17:39)
[2019-01-28 19:02] VITALS: BP 120/79; PULSE 61; RESP 18; TEMP 98.2
== END 2019-01-28 18:42 | disposition home or self-care (01) ==
LOC: EC 16:32
DX: N13.2 Hydronephrosis with renal and ureteral calculous obstruction (principal); Z87.19 Personal history of other diseases of the digestive system; Z98.890 Other specified postprocedural states; Z87.891 Personal history of nicotine dependence; Z79.899 Other long term (current) drug therapy
CPT/HCPCS: 36415; 80053; 82150; 83690; 85025; 85610; 85730; 81001; 74176; 99284; 96374; 96375; 96361; J2270; J1885

== ENCOUNTER 2019-03-23 14:06 | Observation (INO) | payer BC, OTHER ==
[2019-03-23] MEDS ORDERED: NALOXONE 0.4 MG/ML 1 ML VIAL IV PRN (16:25)
[2019-03-23] MEDS ORDERED: KETOROLAC 30 MG/ML 1 ML VIAL IVP PRN (16:25)
[2019-03-23] MEDS ORDERED: HYDROcodone/APAP 5-325MG 1 EACH TAB PO PRN (16:25)
[2019-03-23] MEDS ORDERED: IOPAMIDOL CONTRAST (ORAL USE) VIAL PO PRN (16:30)
[2019-03-23 17:03] LABS: Basophils # (A) 0.1 k/uL (0-0.2); Basophils % (A) 1 %; Eosinophils # (A) 0.3 k/uL (0-0.7); Eosinophils % (A) 4 %; HCT 43.5 % (39.0-53.0); HGB 14.8 gm/dL (13.0-17.5); Lymphocytes # (A) 1.4 k/uL (1.0-4.8); Lymphocytes % (A) 19 %; MCH 30.3 pg (25.0-35.0); MCV 88.9 fL (80.0-100.0); Mean Platelet Volume 7.2; Monocytes # (A) 0.5 k/uL (0-1.0); Monocytes % (A) 6 %; Neutrophils % (A) 68 %; Platelet Count 344 k/uL (150-450); RBC 4.89 m/uL (4.30-5.90); RDW 12.2 % (11.5-15.5); WBC 7.3 k/uL (3.8-10.6)
--- NOTE | 2019-03-23 17:14 | P.HPIM ---
History of Present Illness Patient is a pleasant 58-year-old male was sent in from PCPs office because of his continued abdominal pain since he was diagnosed with renal calculi leak likely couple months ago patient had a renal calculi in the left renal pelvis which is an obstructed [place] that's 5 mm and patient is presently complaining of left flank pain denied any fever chills also comparing of dysuria pain is moderate CVA severe sharp radiating to the left groin area patient is also complaining of increased urinary frequency urgency and inability to urinate patient is complaining of dark colored urine. Patient says he doesn't take any medications for prostate. He was comparing of occasional diarrhea since his Jim's fundoplication Review of Systems REVIEW OF SYSTEMS: CONSTITUTIONAL: No fever, no malaise, no fatigue. HEENT: No recent visual problems or hearing problems. Denied any sore throat. CARDIOVASCULAR: No chest pain, orthopnea, PND, no palpitations, no syncope. PULMONARY: No shortness of breath, no cough, no hemoptysis. GASTROINTESTINAL: No diarrhea, no nausea, no vomiting, no abdominal pain. NEUROLOGICAL: No headaches, no weakness, no numbness. HEMATOLOGICAL: Denies any bleeding or petechiae. GENITOURINARY: As mentioned in HPI MUSCULOSKELETAL/RHEUMATOLOGICAL: Denies any joint pain, swelling, or any muscle pain. ENDOCRINE: Denies any polyuria or polydipsia. The rest of the 14-point review of systems is negative. Past Medical History Past Medical History: COPD, GERD/Reflux, Pneumonia Additional Past Medical History / Comment(s): . History of Any Multi-Drug Resistant Organisms: None Reported Past Surgical History: Hernia Repair, Orthopedic Surgery, Tonsillectomy Additional Past Surgical History / Comment(s): c5-c7 vertebrae replacement surg on 06/06/14. Rt knee arthrscopy, EGD W/ BX(BX WAS NEG) Past Anesthesia/Blood Transfusion Reactions: No Reported Reaction Past Psychological History: No Psychological Hx Reported Additional Psychological History / Comment(s): Pt lives with his fiancee. He is independent with ADls. He can drive. Smoking Status: Former smoker Past Alcohol Use History: Rare Additional Past Alcohol Use History / Comment(s): Pt started smoking when he was 13 yrs old and quit in 1999. Past Drug Use History: None Reported - Past Family History Father Family Medical History: CVA/TIA Additional Family Medical History / Comment(s): Father is currently hospitalized here at [facility] with mini strokes. Mother Family Medical History: No Reported History Additional Family Medical History / Comment(s): Mother is healthy. Medications and Allergies Home Medications Medication Instructions Recorded Confirmed Type Atorvastatin [Lipitor] 40 mg PO DAILY 01/28/19 01/28/19 History Cyanocobalamin (Vitamin B-12) 1,000 mcg PO DAILY 01/28/19 01/28/19 History [Vitamin B-12] Ketorolac [Toradol] 10 mg PO Q8HR #15 tab 01/28/19 Rx Ondansetron Odt [Zofran Odt] 4 mg PO Q8HR PRN #10 tab 01/28/19 Rx Tamsulosin [Flomax] 0.4 mg PO DAILY #7 cap 01/28/19 Rx Allergies Allergy/AdvReac Type Severity Reaction Status Date / Time No Known Allergies Allergy Verified 01/28/19 18:03 Physical Exam Vitals: Intake and Output 03/23/19 03/23/19 03/23/19 06:59 14:59 22:59 Other: Weight 75.296 kg PHYSICAL EXAMINATION: GENERAL: The patient is alert and oriented x3, not in any acute distress. Well developed, well nourished. HEENT: Pupils are round and equally reacting to light. EOMI. No scleral icterus. No conjunctival pallor. Normocephalic, atraumatic. No pharyngeal erythema. No thyromegaly. CARDIOVASCULAR: S1 and S2 present. No murmurs, rubs, or gallops. PULMONARY: Chest is clear to auscultation, no wheezing or crackles. ABDOMEN: Soft, she does have left CVA tenderness, nondistended, normoactive bowel sounds. No palpable organomegaly. MUSCULOSKELETAL: No joint swelling or deformity. EXTREMITIES: No cyanosis, clubbing, or pedal edema. NEUROLOGICAL: Gross neurological examination did not reveal any focal deficits. SKIN: No rashes. Results CBC & Chem 7: 03/23/19 16:43 Assessment and Plan Plan: -Left CVA tenderness and dysuria: Possibly day of urinary tract infection patient the will be started on antibiotics after we get urine analysis and urine culture and blood cultures. If urine is benign antibodies can be discontinued patient was started on 2 g of Rocephin patient had previously normal kidney function. We'll also obtain CAT scan of the abdomen without contrast to rule out any nephrolithiasis. If there is nephrolithiasis considering that he has the symptoms for 2 months will consult urology and patient may also have benign prostatic hypertrophy he does have symptoms of BPH. Patient will be started on tamsulosin as well. - gastroesophageal reflux disease -COPD without any acute exacerbation -Possible nephrolithiasis management as mentioned above -DVT prophylaxis early ambulation
[2019-03-23 17:16] LABS: ALT 21 U/L (4-49); AST 22 U/L (17-59); African American GFR (CKD) >90 (>60 ml/min/1.73 sqM); Albumin 4.2 g/dL (3.5-5.0); Alkaline Phosphatase 72 U/L (38-126); Anion Gap 5 mmol/L; Blood Urea Nitrogen 15 mg/dL (9-20); Calcium 9.3 mg/dL (8.4-10.2); Carbon Dioxide 28 mmol/L (22-30); Chloride 107 mmol/L (98-107); Glucose 77 mg/dL (74-99); Non-African American GFR(CKD) 83 (>60 ml/min/1.73 sqM); Sodium 140 mmol/L (137-145); Total Bilirubin 0.5 mg/dL (0.2-1.3); Total Protein 6.6 g/dL (6.3-8.2)
[2019-03-23] MEDS: SODIUM CHLORIDE 0.9% 1,000 ML IV SCH (17:26)
--- NOTE | 2019-03-23 18:00 | CT ---
EXAMINATION TYPE: CT abdomen pelvis wo con DATE OF EXAM: 03/23/2019 COMPARISON: 01/28/2019 HISTORY: Left sided abdominal pain and right inguinal pain. CT DLP: 341.4 mGycm Automated exposure control for dose reduction was used. Multiple axial sections were obtained from the diaphragm to the floor the pelvis with no contrast. There is some mild subsegmental atelectasis at the posterior lung bases. There is no pleural effusion . Heart size is normal. There are clips from a. Gastric surgery at the gastroesophageal junction. Liver spleen pancreas gallbladder appear normal. Bile ducts are not dilated. There is no adrenal mass. Kidneys show normal size and contour. There is no hydronephrosis. Ureters a re not dilated. There is no retroperitoneal adenopathy. Bladder distends smoothly. There is extensive prostatic calcification. There is no inguinal hernia. There is no free fluid in the pelvis. There ar e multiple sigmoid diverticula. I see no sign of diverticulitis. There is no mesenteric edema. There is no ascites or free air. There is no sign of a bowel obstructio n. Appendix is not definitely seen. There is no sign of thickened appendix. Lumbar vertebra have fairly normal alignment. There is degenerative disc space narrowing at L2-3 and L3-4. There is no compression fracture. There is a mild relative spinal stenosis at L3-4. There is a chronic posterior disc herniation at L2-3 and L3-4. The bony pelvis is intact. IMPRESSION: No sign of acute abdomen and pelvis. There is clearing of the mild left side hydronephrosis compared to old exam.
[2019-03-23 23:12] LABS: Appearance,Urine Clear (Clear); Bacteria,Urine Rare /hpf; Bilirubin,Urine Negative (Negative); Blood,Urine Negative (Negative); Color,Urine Yellow; Glucose,Urine (UA) Negative (Negative); Ketones,Urine Negative (Negative); Leukocyte Esterase,Urine Trace (Negative); Mucus,Urine Occasional /hpf; Nitrite,Urine Negative (Negative); PH, Urine 6.5 (5.0-8.0); Protein,Urine Trace (Negative); RBC,Urine 10 /hpf (0-5); Specific Gravity,Urine 1.028 (1.001-1.035); WBC,Urine 2 /hpf (0-5)
[2019-03-24 05:59] VITALS: RESP 20
[2019-03-24] MEDS: SODIUM CHLORIDE 0.9% 1,000 ML IV SCH ×2 (06:13→12:36)
[2019-03-24] MEDS ORDERED: ATORVASTATIN 40 MG TAB PO SCH (09:00)
[2019-03-24] MEDS ORDERED: TAMSULOSIN 0.4 MG CAP.ER.24H PO SCH (09:00)
[2019-03-24 13:41] VITALS: BP 102/65; PULSE 73; TEMP 97.7
--- NOTE | 2019-03-24 15:40 | P.DS ---
Providers Date of admission: 03/23/19 15:58 Expected date of discharge: 03/24/19 Attending physician: Radha Crandall Primary care physician: Stated None Hospital Course: Mr. Jurado is a 58-year-old male with past medical history of COPD, GERD, BPH coming into the hospital with a chief complaint of left-sided flank pain. Patient states that he was recently diagnosed with renal calculi couple of months back and was having the same kind of pain and so he is worried that he has a stone again. Patient denied having any fevers chills or rigors. No dysuria or hematuria. Patient states the pain was radiating from the left contralateral left groin. Patient had a urinalysis done that was negative for nitrites and leukocyte esterase. Patient also had a CAT scan of the abdomen and pelvis that was negative for any renal calculi. It was showing clearing of the mild left-sided hydronephrosis compared to the old exam. Patient was started on Flomax and his urinary stream is back to his normal. Patient did not receive any antibiotics during the hospital stay. He is back to his baseline. Denies having any symptoms of 40 left flank pain or urinary complaints. Discussed the results of the computed tomography scan of the abd omen and pelvis with Dr. maravilla and his in detail. He has some prostatic calcifications and he is advised to follow-up with his primary care physician Dr. Gannon. Patient is being discharged home in a stable condition. Patient's vitals and labs have been reviewed. DISCHARGE DIAGNOSIS Left CVA tenderness - resolved completely GERD COPD without exacerbation History of left-sided nephrolithiasis PLAN: Patient is being discharged home in a stable condition. Advised to follow-up with his PCP for prostatic calcifications. He is being discharged on Flomax. Plan - Discharge Summary New Discharge Prescriptions: New Tamsulosin [Flomax] 0.4 mg PO DAILY #30 cap.er.24h Continue Atorvastatin [Lipitor] 40 mg PO HS Cyanocobalamin (Vitamin B-12) [Vitamin B-12] 1,000 mcg PO DAILY Citalopram Hydrobromide [Citalopram HBr] 10 mg PO DAILY Albuterol Inhaler [Ventolin Hfa Inhaler] 2 puff INHALATION RT-Q6H PRN PRN Reason: Shortness Of Breath Discharge Medication List Atorvastatin [Lipitor] 40 mg PO HS 01/28/19 [History] Cyanocobalamin (Vitamin B-12) [Vitamin B-12] 1,000 mcg PO DAILY 01/28/19 [History] Albuterol Inhaler [Ventolin Hfa Inhaler] 2 puff INHALATION RT-Q6H PRN 03/23/19 [History] Citalopram Hydrobromide [Citalopram HBr] 10 mg PO DAILY 03/23/19 [History] Tamsulosin [Flomax] 0.4 mg PO DAILY #30 cap.er.24h 03/24/19 [Rx] Follow up Appointment(s)/Referral(s): Gilbert Brenner MD [REFERRING] - 1 Week Discharge Disposition: HOME SELF-CARE
== END 2019-03-24 16:00 | disposition home or self-care (01) ==
LOC: 6NMEDSUR 15:58
PROVIDERS: ADMIT Internal Medicine; ATTEND Internal Medicine
DX: R10.9 Unspecified abdominal pain (principal); R30.0 Dysuria; J44.9 Chronic obstructive pulmonary disease, unspecified; K21.9 Gastro-esophageal reflux disease without esophagitis; N40.0 Benign prostatic hyperplasia without lower urinary tract symptoms; Z87.442 Personal history of urinary calculi; Z87.01 Personal history of pneumonia (recurrent); Z87.891 Personal history of nicotine dependence; Z90.89 Acquired absence of other organs; Z79.1 Long term (current) use of non-steroidal anti-inflammatories (NSAID); Z79.899 Other long term (current) drug therapy; Z82.3 Family history of stroke
CPT/HCPCS: 80053; 85025; 81001; 74176; G0379; G0378 ×2

== ENCOUNTER 2021-01-30 09:36 | Day surgery (SDC) | payer OTHER ==
[2021-01-28 15:06] VITALS: BMI 23.7
[~2021-01-30 09:36] MED LIST changes: -DEXAMETHASONE SOD PHOSPHATE 10 MG/ML 1 ML VIAL IV ONE; -HEPARIN SODIUM,PORCINE 5,000 UNIT/ML 1 ML VIAL SQ ONE; +LACTATED RINGERS 1,000 ML IV SCH; -LIDOCAINE 1% 20 ML VIAL (10MG/ML) FOR IV START INTRADERMA PRN; -MIDAZOLAM 2 MG/2 ML VIAL IV PRN; -ONDANSETRON 4 MG/2 ML VIAL IVP ONE; -SCOPOLAMINE 1.5MG/72HR PATCH TRANSDERM ONE; -ceFAZolin IN SWFI 2 GM/20 ML SYRINGE IVP ONE
[2021-01-30] MEDS ORDERED: LACTATED RINGERS 1,000 ML IV ONE (09:49)
[2021-01-30 09:54] VITALS: RESP 18; TEMP 97.8
[2021-01-30] MEDS ORDERED: PROPOFOL 10 MG/ML 20 ML VIAL IV ONE (10:39)
--- NOTE | 2021-01-30 11:28 | P.PCN ---
Date of Procedure: 01/30/21 Procedure(s) Performed: BRIEF HISTORY: Patient is a 60-year-old pleasant white male scheduled for an elective colonoscopy as a part of value should of chronic diarrhea for the last 10 months duration. He has 5-6 loose watery bowel movements daily. No blood or mucus in the stool. PROCEDURE PERFORMED: Colonoscopy with biopsy and snare polypectomy. PREOPERATIVE DIAGNOSIS: Chronic diarrhea of several months duration. IV sedation per Anesthesia. PROCEDURE: After informed consent was obtained, the patient, was brought into the endoscopy unit. IV sedation was administered by Anesthesia under continuous monitoring. Digital rectal examination was normal. Initially the Olympus CF-160 flexible video colonoscope was then inserted in the rectum, gradually advanced into the cecum without any difficulty. Careful examination was performed as the scope was gradually being withdrawn. Ileocecal valve and the appendiceal orifice were visualized and appeared normal. Prep was excellent. Mucosa of the cecum, where normal. In the ascending colon there was a 5-6 mm polyp that was removed by snare polypectomy. In the transverse colon there were 2 polyps measuring 7 mm in size both of which were removed by snare polypectomy. Rest of the, descending colon, sigmoid colon, and rectum appeared normal. Scattered sigmoid diverticula seen. Random biopsies were done from ascending and descending colon to rule out microscopic/collagenous colitis Retroflexion was performed in the rectum and no lesions were seen. The patient tolerated the procedure well. IMPRESSION: 5 mm ascending colon polyp status post polypectomy 5 mm and 7 mm transverse colon polyp status post polypectomy Scattered sigmoid diverticulosis RECOMMENDATIONS: Findings of this examination were discussed with the patient as well as his family. He was advised to follow with the biopsy results. If the biopsy result adenoma he can have a repeat colonoscopy in 5 years..
[2021-01-30 11:32] VITALS: BP 123/78; PULSE 63
== END 2021-01-30 12:16 | disposition home or self-care (01) ==
LOC: ORWHC2ENDO 09:36
PROVIDERS: ATTEND Internal Medicine Gastroenterology
DX: K57.30 Diverticulosis of large intestine without perforation or abscess without bleeding (principal); K63.5 Polyp of colon
CPT/HCPCS: 88305; 45380; 45385; J2704

== ENCOUNTER 2022-10-22 11:31 | Day surgery (SDC) | payer OTHER ==
[2022-10-22 11:59] VITALS: RESP 16; TEMP 96.6
[2022-10-22] MEDS ORDERED: LIDOCAINE 2% INJ 20 MG/ML (2 ML VIAL) ONE (13:17)
[2022-10-22] MEDS ORDERED: PROPOFOL 10 MG/ML 20 ML VIAL IV ONE (13:17)
--- NOTE | 2022-10-22 13:31 | P.PCN ---
Date of Procedure: 10/22/22 Procedure(s) Performed: BRIEF HISTORY: Patient is a 62-year-old, pleasant, white male scheduled for an upper endoscopy as a part of evaluation of intermittent dysphagia to solids for the last several months duration.. PROCEDURE PERFORMED: Esophagogastroduodenoscopy with biopsy and dilation. PREOPERATIVE DIAGNOSIS: Intermittent dysphagia to solids. IV sedation per anesthesia. PROCEDURE: After informed consent was obtained, the patient was brought into the endoscopy unit. IV sedation was administered by Anesthesia under continuous monitoring. Initially the Olympus GIF-140 video endoscope was inserted into the mouth. Esophagus intubated without any difficulty. It was gradually advanced into the stomach and duodenum and carefully examined. The bulb and the second part of the duodenum appeared normal. The scope at this time was withdrawn to the stomach, adequately insufflated with air, and upon careful examination, mucosa of the antrum had diffuse gastritis and biopsies were done from this area. Mucosa of the, body, cardia and the fundus appeared normal. The scope was then withdrawn into the esophagus. Small hiatal hernia noted. The GE junction was located at 39 cm from the incisors. There was a widely patent distal esophageal Schatzki's ring this was dilated using 18-20 mm TTS balloon in a sequential fashion for 30 seconds. The rest of the esophagus appeared normal. There were no erosions or ulcerations seen , multiple biopsies were done from the mid and distal esophagus to rule out eosinophilic esophagitis and the patient tolerated the procedure well. IMPRESSION: 1. Widely patent distal esophageal Schatzki's ring status post balloon dilation using 18 and 20 mm TTS balloon. 2. Small hiatal hernia 3. Mild antral gastritis. RECOMMENDATIONS: The findings of this examination were discussed with the patient as well as his family. He was advised to follow with the biopsy results. He will continue with omeprazole 20 mg daily and follow antireflux measures. If he continues to have dysphagia he can follow up in office in a month and will consider esophageal manometry to evaluate further.
[2022-10-22 13:49] VITALS: BP 100/64; PULSE 78
== END 2022-10-22 14:07 | disposition home or self-care (01) ==
LOC: ORWHC2ENDO 11:31
PROVIDERS: ATTEND Internal Medicine Gastroenterology
DX: K29.50 Unspecified chronic gastritis without bleeding (principal); K22.2 Esophageal obstruction; K44.9 Diaphragmatic hernia without obstruction or gangrene; K21.00 Gastro-esophageal reflux disease with esophagitis, without bleeding; E78.5 Hyperlipidemia, unspecified; J44.9 Chronic obstructive pulmonary disease, unspecified; F17.200 Nicotine dependence, unspecified, uncomplicated; Z79.899 Other long term (current) drug therapy
CPT/HCPCS: 88305; 43239; 43249; J2704; J2001; C1726